=== PATIENT | male | born 1945 | race Caucasian/White ===

== ENCOUNTER 2019-04-14 18:46 | Inpatient (IN) | payer OTHER ==
[~2019-04-14] VITALS: Ht 180.3 cm; Wt 52.2 kg
--- NOTE | ~2019-04-14 | EKG ---
[place], [place] ELECTROCARDIOGRAM REPORT NAME: MARY GRACE LEUNG UNIT #: [id number] ROOM: 412 DOCTOR: MARIOLA DRAFT REPORT BIRTHDATE: [birth year] [facility] Test Date: 2019-04-14 Test Time: 19:28:56 Pat Name: MARY GRACE LEUNG Department: Room: 412 Gender: M Physician Assistant: SS RESP : 1945 Requested By: DANIELLE ALVAREZ Order Number: [id number] Reading MD: Delfino Olivares MD Measurements Intervals [place] Rate: 76 P: 71 ID: 119 QRS: 33 QRSD: 90 T: 55 QT: 352 QTc: 396 Interpretive Statements Sinus rhythm Borderline short ID interval Low voltage, extremity and precordial leads Electronically Signed On 04-18-2019 9:33:22 PDT by Delfino Olivares MD CM:EKGRPT:ELECTROCARDIOGRAM REPORT 0933 DANIELLE SANDOVAL DRAFT REPORT DANIELLE ALVAREZ DO
--- NOTE | ~2019-04-14 | PR ---
[place], [place] PROGRESS NOTE NAME: MARY GRACE LEUNG UNIT #: [id number] ROOM: 412 DOCTOR: PHD TIA POON BIRTHDATE: [birth year] DOS: 04/16/2019 I followed up with the patient today to assess for the need for emergency guardianship. The patient appears less irritable than yesterday. He continues to demonstrate significant confusion. He gave the date as January 2000. He made several nonsensical statements. Mood was irritable. Affect was intense. There is no suicidal or homicidal ideation, plan or intent. He declined his swallowing assessment today and has also been noncompliant with eating and care. I spoke with nursing staff at his [facility] who states that paranoia and noncompliance are baseline behaviors for this patient as well as confusion and limited orientation. In my opinion, the patient is not competent to make informed healthcare decisions. Given his noncompliance to treatment and care, I will file for emergency guardianship. DIAGNOSES: Brief psychotic disorder; major depressive disorder, recurrent, severe; unspecified neurocognitive disorder. PLAN: In my opinion, the patient is not competent to make informed healthcare decisions. I have completed the emergency guardianship paperwork. Sharita Poon, PhD CM:PNESTUARDO [id number] PHD TIA POON 04/16/19 3471 interface
--- NOTE | ~2019-04-14 | CON ---
[place], [place] REPORT OF CONSULTATION NAME: MARY GRACE LEUNG UNIT #: [id number] ROOM: [facility] DOCTOR: PHD ELIN TIA BIRTHDATE: [birth year] DOS: 04/15/2019 HISTORY OF PRESENT ILLNESS: The patient is a 73-year-old male referred by the hospitalist with concerns for confusion. He was a resident at the [facility]. The patient states that he is and has 2 kids. 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 Per his medical record, he has history of alcohol abuse and is a former smoker. He does not use illegal drugs. PAST MEDICAL HISTORY: Coronary artery disease, chronic back pain, dementia, essential hypertension, hyperlipidemia. MEDICATIONS: Heparin, Dulcolax, Zofran, Tylenol, Rocephin, Restoril. NEUROLOGIC EXAMINATION: The patient was lying in bed in no apparent distress. He was awake, alert and oriented to person. He stated that he was in some "hospital." He cannot provide the time, the president or any current events. Mood was irritable. Affect was restricted in range. He denied current thoughts of wanting to harm himself or anyone else. Speech was within normal limits with respect to rhythm, rate, volume and tone. Expressive and receptive language appeared within normal limits conversationally. Thought process was tangential. Thought content was noteworthy for paranoid delusions that the staff were poisoning him. He has declined to eat for fear that his food has been poisoned. He is not attending to hygiene or grooming nor allowing anyone to assist him with these matters and as a consequence, he is malodorous. I discussed the patient with Dr. Myrick. He stated that the patient has been expressing passive wish to , not attending to his ADLs at his prison. DIAGNOSES: Brief psychotic disorder; major depressive disorder, recurrent, severe; unspecified neurocognitive disorder. PLAN: The patient appears to be appropriate for the [facility] where he can receive further psychiatric stabilization. I spoke to [facility] staff and Dr. Myrick who stated that the patient would benefit from treatment on the [facility] once medically stable. Thank you very much for this consult. [place], [place] REPORT OF CONSULTATION NAME: MARY GRACE LEUNG UNIT #: [id number] ROOM: [facility] DOCTOR: ELIN, PHD TIA BIRTHDATE: [birth year] Sharita Poon, PhD CM:CONSTR:REPORT OF CONSULTATION 1711 04/15/19 2336 interface
--- NOTE | ~2019-04-14 | EKG ---
[place], [place] ELECTROCARDIOGRAM REPORT NAME: MARY GRACE LEUNG UNIT #: [id number] ROOM: 412 DOCTOR: MARIOLA DRAFT REPORT BIRTHDATE: [birth year] [facility] Test Date: 2019-04-14 Test Time: 23:18:38 Pat Name: MARY GRACE LEUNG Department: Room: 412 Gender: M Oracle Adf Developer: SS RESP : 1945 Requested By: RAVIN JUNIOR Order Number: [id number] Reading MD: Delfino Olivares MD Measurements Intervals [place] Rate: 76 P: 71 WA: 132 QRS: 32 QRSD: 85 T: 45 QT: 390 QTc: 439 Interpretive Statements Sinus rhythm Low voltage, extremity leads Baseline wander in lead(s) III No previous ECG available for comparison Electronically Signed On 04-18-2019 9:33:59 PDT by Delfino Olivares MD CM:EKGRPT:ELECTROCARDIOGRAM REPORT [id number] 0933 RAVIN SANDOVAL DRAFT REPORT RAVIN JUNIOR DO
[2019-04-14 18:55] VITALS: BP 79/47
[2019-04-14 19:03] VITALS: BP 80/40
[2019-04-14 19:38] LABS: BASO # 0.1 10*3/uL (0.0-0.1); BASO % 0.7 % (0.0-1.0); EOS # 0.3 10*3/uL (0.0-0.4); EOS % 2.2 % (1.0-4.0); HEMATOCRIT 37.4 % (42.0-52.0); LYMPH # 1.4 10*3/uL (1.3-4.4); LYMPH % 12.1 % (27.0-41.0); MEAN CELL VOLUME 101.1 fl (80.0-94.0); MEAN CORPUSCULAR HGB 32.4 pg (27.0-31.0); MEAN CORPUSCULAR HGB CONC 32.1 g/dl (33.0-37.0); MEAN PLATELET VOLUME 10.4 fl (9.6-12.3); MONO % 9.1 % (3.0-9.0); NEUT # 8.6 10*3/uL (2.3-7.9); NEUT % 74.9 % (47.0-73.0); PLATELET COUNT AUTOMATED 407 10*3/uL (130-400); RED CELL DISTRI WIDTH 13.5 % (0-14.5); WHITE BLOOD COUNT 11.4 10*3/uL (4.8-10.8)
[2019-04-14 19:53] LABS: ACT PARTIAL THROMBO TIME 27.1 SECONDS (20.0-32.1); INTERNATIONAL NORM RATIO 1.2 (2.0-3.5)
[2019-04-14 19:56] LABS: ALBUMIN 3.3 gm/dl (3.1-4.5); ALKALINE PHOSPHATASE 121 U/L (45-117); BUN 137 mg/dl (7-24); CHLORIDE 105 mmol/L (98-107); POTASSIUM 5.8 mmol/L (3.5-5.1); SGOT/AST 15 IU/L (3-35); SGPT/ALT 10 U/L (12-78); SODIUM 141 mmol/L (136-145); TOTAL PROTEIN 8.4 gm/dL (6.4-8.2)
[2019-04-14 20:00] LABS: ACETAMINOPHEN (TYLENOL) < 5.0 ug/ml (10-30); ETHYL ALCOHOL < 3.0 mg/dl (<3)
[2019-04-14 20:12] LABS: CREATININE 4.25 mg/dL (0.70-1.30)
[2019-04-14 20:17] LABS: TROPONIN I < 0.015 ng/ml (<0.045)
[2019-04-14 20:53] VITALS: BP 86/50
--- NOTE | 2019-04-14 21:20 | NUR ---
PATIENT REFUSED WOUND CHECK
[2019-04-14 21:40] VITALS: BP 104/69
--- NOTE | 2019-04-14 21:40 | NUR ---
A 73 YEAR OLD MALE admitted to ICCU, under the services of ELENA Waldrop DO with a diagnosis of HYPOTENSION,ARF,HYPER KALEMIA. Chief complaint is FOR PSYCH EVAL. Patient arrived via stretcher from ER. Monitor applied. Initial assessment completed. Vital signs taken and recorded. ELENA WALDROP DO notified of admission to the unit. Orders received. See assessment for past medical history, medications and allergies. Patient and/or family oriented to unit. [facility] ICCU visitation policy reviewed. Clothing/patient valuable form completed. LULU PIRES
[2019-04-14] MEDS ORDERED: FLUVOXAMINE MA100 MG PO ×2 (22:00→22:26)
[2019-04-14] MEDS ORDERED: FLUVOXAMINE50 MG PO ×2 (22:01→22:26)
[2019-04-14] MEDS ORDERED: KETOROLAC30 MG/1 M1 IJ (22:02)
--- NOTE | 2019-04-14 22:19 | NUR ---
DR. COLLIER'S ANSWERING MACHINE NOTIFIED OF CONSULT, AWAITING DR. COLLIER RETURN CALL.
[2019-04-14] MEDS ORDERED: ATORVASTATIN CA40 M1 PO (22:23)
[2019-04-14] MEDS ORDERED: NORVASC5 MG PO (22:23)
[2019-04-14] MEDS ORDERED: CLOPIDOGREL75 MG PO (22:24)
[2019-04-14] MEDS ORDERED: ISOSORBIDE30 MG PO (22:27)
[2019-04-14] MEDS ORDERED: KETOROLAC30 MG/1 ML IM (22:29)
[2019-04-14] MEDS ORDERED: ZESTRIL2.5 MG PO (22:29)
[2019-04-14] MEDS ORDERED: LOPRESSOR25 MG PO (22:30)
[2019-04-14] MEDS ORDERED: COMPLETE SENIO1 EACH PO (22:31)
[2019-04-14] MEDS ORDERED: MIRALAX POWDER17 G1 PO (22:33)
[2019-04-14] MEDS ORDERED: NITROGLYCERIN0.4 MG SL (22:33)
[2019-04-14] MEDS ORDERED: SENNA-LAX8.6 MG PO (22:34)
[2019-04-14] MEDS ORDERED: THIAMINE HCL100 MG PO (22:35)
[2019-04-14] MEDS ORDERED: ZOLOFT25 MG PO (22:35)
[2019-04-14] MEDS ORDERED: TRAMADOL HCL50 MG PO (22:36)
[2019-04-14] MEDS ORDERED: VITAMIN D35000 UNIT PO (22:37)
--- NOTE | 2019-04-14 22:53 | NUR ---
PT. REFUSING BLOOD WORK AT THIS TIME. WILL NOT LET LAB DRAW. WHEN ASKED IF HE WAS HUNGRY, PT. SCREAMED "NO". PT. REMAINS DIFFICULT. DR. COLLIER RETURNED CALL, NO FURTHER ORDERS RECEIVED. JONO LOMELI RN
--- NOTE | 2019-04-14 23:04 | NUR ---
[facility] NOTIFIED OF PSYCH CONSULT. JONO LOMELI RN
[2019-04-15] VITALS: BP 110/80
--- NOTE | 2019-04-15 00:18 | NUR ---
PT. REFUSING TO LET STAFF CHECK FOR WOUNDS, STATES HE HAS NONE BUT WILL NOT LET STAFF CHECK HIM. REFUSING ALL CARE. JONO LOMELI RN
[2019-04-15 00:20] LABS: BILIRUBIN NEGATIVE (NEGATIVE); CLARITY TURBID (CLEAR); COLOR YELLOW (YELLOW); GLUCOSE NEGATIVE (NEGATIVE); KETONE NEGATIVE (NEGATIVE)
[2019-04-15 00:21] LABS: BLOOD 1+ (NEGATIVE); LEUKO ESTERASE 3+ (NEGATIVE); NITRITE POSITIVE (NEGATIVE); PH 7.5 (5.0-9.0); UROBILINOGEN 0.2 E.U./dl (0.2-1.0); WBC TNTC wbc/hpf (0-5)
[2019-04-15 00:29] LABS: URINE AMPHETAMINES < 1000 (1000ng/ml); URINE BARBITURATES < 200 (200ng/ml); URINE BENZODIAZEPINES < 200 (200ng/ml); URINE OPIATES < 300 (300ng/ml)
[2019-04-15 00:34] LABS: URINE CANNABINOIDS (THC) < 50 (50ng/ml); URINE COCAINE < 300 (300ng/ml); URINE METHADONE < 300 (300ng/ml)
[2019-04-15 00:39] LABS: URINE PHENCYCLIDINE < 25 (25ng/ml)
--- NOTE | 2019-04-15 02:07 | NUR ---
PT. ASKED IF HE WAS GETTING SOMETHING TO EAT. I INFORMED PATIENT THAT IT WAS 0200 AND I WOULD BE ABLE TO GET HIM A BOXED LUNCH, WHICH WAS ALL THAT WAS AVAILABLE AT THIS TIME OF MORNING. PATIENT STATED "QUIT FOOLING WITH ME", "I DID BEFORE". WHEN ASKED IF HE WANTED TO SOMETHING TO EAT CURRENTLY, PT. STATED "JOSÉ MIGUEL, I DON'T KNOW, DO I". PATIENT REFUSING EKG AND MORE BLOOD WORK. VERY NONCOMPLIANT AND RUDE TO STAFF. JONO LOMELI RN
[2019-04-15 04:00] VITALS: BP 105/66
--- NOTE | 2019-04-15 07:00 | NUR ---
PT REFUSED AM ASSESMENT. PT AWAKE AND VERY MEAN AND VERBALLY ABUSIVE TO STAFF. IV FLUIDS CONTINUE TO INFUSE PER ORDER.
[2019-04-15 08:00] VITALS: BP 111/74
--- NOTE | 2019-04-15 08:30 | NUR ---
PT CONTINUES TO REFUSE AM LABS.
--- NOTE | 2019-04-15 09:00 | NUR ---
PT REFUSED TO EAT BREAKFAST AND REFUSED TO WORK WITH SPEECH THERAPY.
--- NOTE | 2019-04-15 09:00 | NUR ---
Supervisor Dog License Officer in to see patient. He is a LTC resident at [facility]. When medically stable for discharge he will be discharged to U.
--- NOTE | 2019-04-15 09:10 | NUR ---
PT REFUSED RENAL ULTRASOUND. PT INCONT. OF STOOL BUT HAS REFUSED TO LET ME CLEAN HIM UP. PT REFUSES TO BELIEVE THAT HE HAS MOVED HIS BOWELS EVEN THOUGH WHEN HE USES THE URINAL THERE IS STOOL ON THE OUTSIDE OF THE URINAL.
--- NOTE | 2019-04-15 09:15 | NUR ---
SPEECH PATHOLOGY Orders for dysphagia evaluation received and chart review completed. Assessment was attempted this am. Patient was awake in bed and his breakfast tray was present. Patient was noncompliant at this time and refused to participate or eat. His nurse was also present in the room and patient was noted to be impolite with her as well and refusing other care. Will attempt assessment again later. Thank you for this referral. ELVIRA VICTOR MS CCC-MAINTENANCE ADVISOR
--- NOTE | 2019-04-15 09:45 | NUR ---
PT REQUESTED TYLENOL FOR GENERALIZED ACHES AND PAINS. PT REFUSED SQ HEPARIN. PT AGAIN REFUSED TO LET ME LOOK TO SEE IF HE NEEDS CLEANED UP.
--- NOTE | 2019-04-15 10:19 | NUR ---
DR PHAM IN TO SEE PT. UPDATED HIM ON PT'S CONDITION AND PT'S CONTINUED REFUSALS OF TREATMENTS.
[2019-04-15 12:00] VITALS: BP 123/66
--- NOTE | 2019-04-15 12:09 | NUR ---
DR WORTHINGTON IN TO SEE PT.
--- NOTE | 2019-04-15 13:08 | NUR ---
SPEECH PATHOLOGY Evaluation attempted this pm. Patient agreed to eat lunch and a tray was ordered. Clinician attempted assessment once meal tray arrived. Patient was uncooperative and refused evaluation. Encouragment to eat was provided and assistance was offered. Patient continued to be noncompliant and would not eat. He was noted to be confused and not answering questions appropriately. Due to behavior, assessment was not able to be completed at this time. Patient's nurse was informed and verbalized understanding as he has been uncooperative all day. Will attempt again tomorrow. Thank you for this referral. ELVIRA VICTOR MSCCC-DIRECTOR HUMAN SERVICES
--- NOTE | 2019-04-15 13:26 | NUR ---
Occupational Therapy evaluation offered but patient declined stating that he did not feel good. Nursing reports that patient refuses to eat unless the food is prepackaged d/t his paranoia. OTR will recheck at a later date. Jayleen Hdez OTR/L
--- NOTE | 2019-04-15 13:32 | NUR ---
PHYSICAL THERAPY PAtient refuses PT this date. Will attempt at a later date. Thank you for this referral. Archana Plata,PT
--- NOTE | 2019-04-15 14:36 | NUR ---
DR COLLIER IN TO SEE PT EARLIER. PT AGREED TO HAVE LABS DRAWN FOR DR COLLIER. LABS FROM AM REORDERED.
--- NOTE | 2019-04-15 15:16 | NUR ---
PT ON BEDPAN FOR BM. PT CLEANSED AND LINENS CHANGED. PT CONTINUES TO BE VERBALLY ABUSIVE TO STAFF.
[2019-04-15 16:00] VITALS: BP 103/50
[2019-04-15 16:04] LABS: BASO # 0.1 10*3/uL (0.0-0.1); BASO % 0.5 % (0.0-1.0); EOS # 0.2 10*3/uL (0.0-0.4); EOS % 2.4 % (1.0-4.0); HEMATOCRIT 35.8 % (42.0-52.0); HEMOGLOBIN 11.2 g/dl (14.0-18.0); LYMPH # 0.9 10*3/uL (1.3-4.4); LYMPH % 9.9 % (27.0-41.0); MEAN CELL VOLUME 102.9 fl (80.0-94.0); MEAN CORPUSCULAR HGB 32.2 pg (27.0-31.0); MEAN CORPUSCULAR HGB CONC 31.3 g/dl (33.0-37.0); MEAN PLATELET VOLUME 9.8 fl (9.6-12.3); MONO # 0.9 10*3/uL (0.1-1.0); MONO % 9.5 % (3.0-9.0); NEUT % 76.8 % (47.0-73.0); PLATELET COUNT AUTOMATED 318 10*3/uL (130-400); RED BLOOD COUNT 3.48 10*6/uL (4.50-5.90); RED CELL DISTRI WIDTH 13.6 % (0-14.5); WHITE BLOOD COUNT 9.1 10*3/uL (4.8-10.8)
[2019-04-15 16:15] LABS: CREATININE 2.34 mg/dL (0.70-1.30); POTASSIUM 5.2 mmol/L (3.5-5.1)
[2019-04-15 16:20] LABS: FREE T4 1.08 ng/dl (0.76-1.46); PHOSPHOROUS 3.3 mg/dL (2.5-4.9)
[2019-04-15 16:26] LABS: THYROID STIM HORMONE (HS) 0.576 uIU/ml (0.358-4.75)
--- NOTE | 2019-04-15 16:44 | NUR ---
DR LEO STATED PT COULD BE DISCHARGED TO U WHEN MEDICALLY STABLE.
--- NOTE | 2019-04-15 17:23 | NUR ---
DR COLLIER UPDATED ON LAB RESULTS. NEW ORDERS RECEIVED.
[2019-04-15 20:00] VITALS: BP 144/84
--- NOTE | 2019-04-15 20:23 | NUR ---
DR. JUNIOR NOTIFIED OF PATIENT DEMANDING HOME MEDICATIONS INCLUDING BLOOD PRESSURE MEDICATION. DR. JUNIOR TO REVIEW. JONO LOMELI RN
--- NOTE | 2019-04-15 20:52 | NUR ---
PT. HAS IVF INFUSING VIA RAN, SITE ASYMPT. LUNGS CLEAR BUT DIMINISHED BILAT, PULSE OX 99% ON RA. ABDOMEN SOFT, NONDISTENDED AND NORMO. NO PERIPHERAL EDEMA NOTED. TYLENOL GIVEN AT 8 FOR COMPLAINTS OF HEADACHE ORDERED. PT. REMAINS UNCOOPERATIVE WITH CARE AND SARCASTIC WITH ANSWERS. CONTINUES TO BELITTLE STAFF. JONO LMOELI RN
--- NOTE | 2019-04-15 21:57 | NUR ---
AFTER EMPTYING PATIENTS URINAL, EMPTY URINAL WAS PLACED ON NIGHT STAND WITH LID ON AND FELL OVER. PT. CALLED NURSE "YOU DUMB XXXX". NURSE INFORMED PATIENT THAT IT WAS AN ACCIDENT AND DIDN'T APPRECIATE BEING CALLED DUMB. JONO LOMELI RN
--- NOTE | 2019-04-15 22:11 | NUR ---
PT. STATES EFFECTIVENESS OF TYLENOL. JONO LOMELI RN
--- NOTE | 2019-04-15 22:11 | NUR ---
DR. JUNIOR NOTIFIED THAT PATIENT DEMANDING TO TALK TO HIM REGARDING HOME MEDICATIONS. JONO LOMELI RN
[2019-04-16] VITALS: BP 113/70
--- NOTE | 2019-04-16 02:14 | NUR ---
PT. COMPLAINS OF HEADACHE, TYLENOL GIVEN ORDERED PER PT. REQUEST. PT ALSO STATED C/O OF NAUSEA, ZOFRAN GIVEN ORDERED, PT. THEN COMPLAINED THAT MEDICINE GIVES HIM THE "SHITS" AND I SHOULD'NT HAVE GIVEN HIM THE ZOFRAN. EVEN THOUGH PT. WAS AWARE ZOFRAN WAS BEING GIVEN PRIOR TO GIVING IT. JONO LOMELI RN
--- NOTE | 2019-04-16 02:41 | NUR ---
CLARIFICATION OF IVF WITH DR. JUNIOR. ONCE 0.45NS IS DONE, D/C IVF.
[2019-04-16 04:00] VITALS: BP 106/67
--- NOTE | 2019-04-16 04:48 | NUR ---
PT. CONTINUES TO REFUSE WOUND CHECK.
[2019-04-16 08:00] VITALS: BP 128/80
[2019-04-16 08:20] LABS: ALBUMIN 2.8 gm/dl (3.1-4.5); CREATININE 1.72 mg/dL (0.70-1.30); POTASSIUM 4.9 mmol/L (3.5-5.1); TOTAL PROTEIN 6.9 gm/dL (6.4-8.2)
--- NOTE | 2019-04-16 08:52 | NUR ---
MEDICATED PT PER PRN ORDER WITH TYLENOL FOR C/O GENERALIZED ACHES AND PAINS.
--- NOTE | 2019-04-16 09:00 | NUR ---
Yoga Instructor in to see patient. He is a LTC resident at [facility]. When medically stable for discharge he will be discharged to U.
--- NOTE | 2019-04-16 09:50 | NUR ---
PT STATES SOME RELIEF OF PAIN WITH EARLIER TYLENOL.
--- NOTE | 2019-04-16 10:25 | NUR ---
DR LINTON IN TO SEE PT.
[2019-04-16 12:00] VITALS: BP 143/91
--- NOTE | 2019-04-16 12:29 | NUR ---
DR COLLIER IN TO SEE PT.
--- NOTE | 2019-04-16 13:11 | NUR ---
SPEECH PATHOLOGY Swallowing assessment was attempted this date. Patient was awake and sitting upright in bed. He had a meal tray present but it was noted to be untouched. Clinician explained reasoning for her visit with need to assess swallowing skills. Patient was impolite and sarcastic with clinician and refused to eat or drink anything. He stated that he was swallowing fine. Results were shared with his nurse, who reported that he continues to be noncompliant with eating and care. Will attempt assessment again tomorrow as able. ELVIRA VICTOR MSCCC-APPAREL CUTTER
--- NOTE | 2019-04-16 14:55 | NUR ---
Patient refuses any out of bed activity and refuses Occupational Therapy evaluation. Jayleen Hdez OTR/L
--- NOTE | 2019-04-16 15:21 | NUR ---
PHYSICAL THERAPY PAtient continues to refuse PT services. Archana Plata,PT
--- NOTE | 2019-04-16 15:47 | NUR ---
Reached out to Kaela Mcadams regarding emergency guardianship papers. Kaela will follow up in the morning.
[2019-04-16 16:00] VITALS: BP 123/68
--- NOTE | 2019-04-16 16:00 | NUR ---
Reached out to Kaela Mcadams regarding emergency guardianship paperwork. Faxed state of expert evaluation and supplement for emergency guardian of person to Sandra Hassan at [employer] [phone] along with clinical.
--- NOTE | 2019-04-16 16:06 | NUR ---
Fax didn't go through for Vero Hassan, faxing to [phone]. Fax successful.
--- NOTE | 2019-04-16 17:22 | NUR ---
TYLENOL GIVEN FOR C/O GENERALIZED DISCOMFORT. WILL MONITOR.
--- NOTE | 2019-04-16 18:25 | NUR ---
TYLENOL EFFECTIVE PER PT.
[2019-04-16 20:00] VITALS: BP 129/70
--- NOTE | 2019-04-16 20:40 | NUR ---
24 HOUR CHART CHECK COMPLETE.
--- NOTE | 2019-04-16 22:06 | NUR ---
PRN TYLENOL ADMINISTERED FOR 6/10 HEADACHE. WILL CONTINUE TO MONITOR AND REASSESS IN AN HOUR.
[2019-04-17] VITALS: BP 121/80
--- NOTE | 2019-04-17 07:35 | NUR ---
Received call from Vero Hassan at [facility] regarding emergency guardianship paperwork. Since the patient's address is [place], [place], [employer] in [facility] would need to be used. Phone numbers for [facility] contact are [phone] or [phone].
[2019-04-17 07:37] LABS: ALBUMIN 2.6 gm/dl (3.1-4.5); ALKALINE PHOSPHATASE 104 U/L (45-117); CHLORIDE 111 mmol/L (98-107); CREATININE 1.22 mg/dL (0.70-1.30); POTASSIUM 4.6 mmol/L (3.5-5.1); SGOT/AST 19 IU/L (3-35); SGPT/ALT 11 U/L (12-78); SODIUM 140 mmol/L (136-145); TOTAL PROTEIN 6.6 gm/dL (6.4-8.2)
--- NOTE | 2019-04-17 07:42 | NUR ---
Voicemail left for [facility] at [phone]. Awaiting return call.
[2019-04-17 07:44] LABS: BUN 42 mg/dl (7-24)
--- NOTE | 2019-04-17 07:48 | NUR ---
Spoke to Hawa at [facility] regarding POA or guardianship papers on file. She states there are no POA or guardianship paperwork on file. She states there is a brother, Chalino, who is the billing contact and they are allowed to give information too. Contacted Kaela Mcadams. Awaiting return call.
[2019-04-17 08:00] VITALS: BP 145/89
[2019-04-17] MEDS ORDERED: LEVAQUIN750 M1 PO (10:44)
--- NOTE | 2019-04-17 10:45 | NUR ---
[facility] emergency [facility]hip paperwork and how to file. If the brother chooses to be the guardian he will need to [facility] and cook pickled meat the adult guardianship application or print it from [email or web address]. He will need the expert guardianship paperwork that has been completed by Dr. Poon and $161 to file. Will reach out to the brother.
--- NOTE | 2019-04-17 11:00 | NUR ---
Spoke to brother, Chalino, at [phone] regarding emergency guardianship. He states the patient has a daughter which he will either try to get a hold of or call CM back at a later time to give CM her phone number to call her. He states if she is unable to do the emergency guardianship he would be willing to. Awaiting response.
--- NOTE | 2019-04-17 11:10 | NUR ---
Spoke to Yesenia, , at [facility] regarding emergency guardianship. She states the hospital will be his authorized patient registration representative and the family can pursue guardianship paperwork. Fax expert evaluation to [phone]. Faxed and confirmation received.
[2019-04-17 12:00] VITALS: BP 140/84
--- NOTE | 2019-04-17 12:38 | NUR ---
SPEECH PATHOLOGY Attempted swallowing evaluation X3 this date. Patient refused upon all trials, and would not consume any food or liquid. Patient was pleasant this date, but confused. Encouragment was provided as well as positive reinforcement. Meal tray was present and untouched. Patient stated that he was aware the food was there but was not ready to eat. Clinician attempted to hand him liquids, but he would put the cup down. Assessment has been attempted over the past three days without any success. Encouragement is not helpful and only results in patient becoming angry. As he is not able to cooperate or participate, will discontinue attempts at this time. Reports indicate that patient will be transferred to behavioral health unit. If patient becomes more compliant with care and meals, this dept. will be available for reconsult as needed. Thank you for this referral. ELVIRA REID[facility]FF[facility]NUT ROASTER
--- NOTE | 2019-04-17 14:06 | NUR ---
Discharge instructions reviewed with patient/family. Patient receptive and verbalizes understanding. Follow-up care arranged. Written instructions given to patient/family. RAJIV HOOPER.
== END 2019-04-17 14:06 | disposition home health service (06) | DRG 314 ==
LOC: ED 18:46 → EDHOLD 20:45 → ICCU 20:45 → 4E 20:45 → ICCU 21:11 → 4E 04-16 12:36
PROVIDERS: Internal Medicine; Internal Medicine Nephrology; Student in an Organized Health Care Education/Training Program; ADMIT Internal Medicine
DX: I95.89 Other hypotension (principal); N17.0 Acute kidney failure with tubular necrosis; G93.41 Metabolic encephalopathy; F03.91 Unspecified dementia, unspecified severity, with behavioral disturbance; F33.2 Major depressive disorder, recurrent severe without psychotic features; F23 Brief psychotic disorder; N39.0 Urinary tract infection, site not specified; E87.2 Acidosis; E86.1 Hypovolemia; E87.5 Hyperkalemia; I25.10 Atherosclerotic heart disease of native coronary artery without angina pectoris; M54.9 Dorsalgia, unspecified; G89.29 Other chronic pain; I10 Essential (primary) hypertension; E78.5 Hyperlipidemia, unspecified; R79.89 Other specified abnormal findings of blood chemistry; D72.829 Elevated white blood cell count, unspecified; D53.9 Nutritional anemia, unspecified; D47.3 Essential (hemorrhagic) thrombocythemia; R41.9 Unspecified symptoms and signs involving cognitive functions and awareness; B96.89 Other specified bacterial agents as the cause of diseases classified elsewhere; E87.8 Other disorders of electrolyte and fluid balance, not elsewhere classified; T39.395A Adverse effect of other nonsteroidal anti-inflammatory drugs [NSAID], initial encounter; T46.4X5A Adverse effect of angiotensin-converting-enzyme inhibitors, initial encounter; Z79.899 Other long term (current) drug therapy; Z87.891 Personal history of nicotine dependence; Z91.11 Patient's noncompliance with dietary regimen; Z91.19 Patient's noncompliance with other medical treatment and regimen; Y92.89 Other specified places as the place of occurrence of the external cause

== ENCOUNTER 2019-04-17 12:37 | Inpatient (IN) | payer OTHER ==
[~2019-04-17] VITALS: Ht 180.3 cm; Wt 66.7 kg
--- NOTE | ~2019-04-17 | EKG ---
[place], [place] ELECTROCARDIOGRAM REPORT NAME: MARY GRACE LEUNG UNIT #: [id number] ROOM: 312 DOCTOR: MARIOLA DRAFT REPORT BIRTHDATE: [birth year] [facility] Test Date: 2019-04-22 Test Time: 16:05:18 Pat Name: MARY GRACE LEUNG Department: Room: 312 2 Gender: M Ceramic Sprayer: : 1945 Requested By: DMITRIY PABON Order Number: [id number] Reading MD: El Moses Measurements Intervals [place] Rate: 87 P: [place]: QRS: 20 QRSD: 82 T: -4 QT: 366 QTc: 441 Interpretive Statements Atrial rhythm Low voltage, extremity leads Compared to ECG 04/14/2019 23:18:38 Electronically Signed On 04-23-2019 13:45:24 PDT by El Moses CM:EKGRPT:ELECTROCARDIOGRAM REPORT 1605 1345 DMITRIY PABON EPIPHANY DRAFT REPORT DMITRIY PABON
--- NOTE | ~2019-04-17 | EKG ---
[place], [place] ELECTROCARDIOGRAM REPORT NAME: MARY GRACE LEUNG UNIT #: [id number] ROOM: 312 DOCTOR: MARIOLA DRAFT REPORT BIRTHDATE: [birth year] [facility] Test Date: 2019-04-22 Test Time: 18:58:06 Pat Name: MARY GRACE LEUNG Department: Room: 312 2 Gender: M Plate Sensitizer: : 1945 Requested By: DMITRIY PABON Order Number: [id number] Reading MD: El Moses Measurements Intervals [place] Rate: 96 P: 73 ME: 120 QRS: 28 QRSD: 78 T: 49 QT: 334 QTc: 422 Interpretive Statements Sinus rhythm Atrial premature complex Low voltage, extremity and precordial leads Baseline wander in lead(s) V4 Compared to ECG 04/14/2019 23:18:38 Atrial premature complex(es) now present Electronically Signed On 04-23-2019 13:46:50 PDT by El Moses CM:EKGRPT:ELECTROCARDIOGRAM REPORT [id number] 1346 DMITRIY PABON EPIPHANY DRAFT REPORT DMITRIY PABON
--- NOTE | ~2019-04-17 | PR ---
[place], [place] PROGRESS NOTE NAME: MARY GRACE LEUNG UNIT #: [id number] ROOM: 312 DOCTOR: PIERCE PHAM MD BIRTHDATE: [birth year] DOS: 04/21/2019 CHIEF COMPLAINT: "I can't find my TV remote, what did you guys do to it." SUMMARY OF THE VISIT: The patient was interviewed as he was resting in his bed. Nurses report he continues to be confused and have a very poor appetite, although he was just started on the Marinol yesterday. During my exam, he was somewhat sarcastic and nihilistic, still reporting depression. MENTAL STATUS: He is alert and oriented, but he does have significant time gaps and I am not clear he knows that he is in the hospital. Mood does seem to be overwhelmingly down and depressed. Affect is flat, blunted and constricted. There is no franki or hypomania. No gross psychosis. Short term memory is poor. PLAN: At this point in time, his lack of appetite is more problematic than any OCD that is present, although he had been on Remeron before he was not on it in conjunction with Risperdal and the Marinol. I will discontinue the Luvox in lieu of Remeron 15 mg at bedtime. We will engage in individual and reyes milieu activity, returning to the least restrictive environment when psychiatrically stable. PIERCE PHAM MD CM:PNTRANS [id number] PIERCE PHAM MD 04/21/19 1015 interface
--- NOTE | ~2019-04-17 | PR ---
[place], [place] PROGRESS NOTE NAME: MARY GRACE LEUNG UNIT #: [id number] ROOM: 312 DOCTOR: PIERCE PHAM MD BIRTHDATE: [birth year] DOS: 04/23/2019 CHIEF COMPLAINT: "Oh, I can't eat everything that they give to me plus I don't know what's going to happen here, did you see how many people are around here, something bad is gonna happen." SUMMARY OF THE VISIT: The patient was interviewed as he was resting quietly in bed. He has continued to isolate himself in his room and requires a great deal of prompting to attend to ADLs or to leave his room to attend to group or to go and have some type of meal. The patient reports that he cannot eat the large portions set in front of him because eating large amounts of food at once will cause him to be nauseated and throw up. He otherwise engaged in relatively good conversation. However, there is a bit of paranoia or confusion on his part. He did allude to being somewhat concerned about his safety because of the number of people that are here and being fearful that something will happen to him. On a positive note, the patient did sign in and is willing to start working on improving his overall sense of well-being. He has been more compliant with medications. MENTAL STATUS: He is alert and oriented with time gaps. He was not able to tell me how long he has been here, but did attempt to confabulate a little bit. The patient continues to exhibit the neurovegetative symptoms of poor appetite and lack of ADL maintenance. There was no hypomania or franki. There is the possible presence of some paranoia and I will monitor this and memory does have gaps. PLAN: I will renew his p.r.n. Ativan should he require intervention. I will increase the Namenda from 10 mg total in a day to 15 mg a day, augmenting the effectiveness of the Exelon patch. At this point, I will maintain his Marinol and Remeron doses as they had been. We will go ahead and consult Dietary to see if we can offer him 6 small meals a day to see if this improves his overall p.o. intake. We will monitor and support, engage in individual and reyes milieu activity, returning to the least restrictive environment when psychiatrically stable. [place], [place] PROGRESS NOTE NAME: MARY GRACE LEUNG UNIT #: [id number] ROOM: 312 DOCTOR: PIERCE PHAM MD BIRTHDATE: [birth year] PIERCE PHAM MD CM:PNTRANS [phone] PIERCE PHAM MD 04/23/191953 interface
--- NOTE | ~2019-04-17 | EKG ---
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
--- NOTE | ~2019-04-17 | PR ---
[place], [place] PROGRESS NOTE NAME: MARY GRACE LEUNG UNIT #: [id number] ROOM: 312 DOCTOR: PIERCE PHAM MD BIRTHDATE: [birth year] DOS: 04/19/2019 CHIEF COMPLAINT: "Why don't I have a television and where is my phone. I paid for these things I need to have them." SUMMARY OF THE VISIT: The patient was interviewed in his room as he was lying in bed. He continues to be negativistic and very depressed and sarcastic. He outwardly is tolerating the medicines well and I see no sedation, somnolence, extrapyramidal symptoms or tardive dyskinesia. He remains confused though especially regarding time frames. Nurses report he had a very poor sleep last night as well. MENTAL STATUS: He is alert and oriented to person, possibly place, although it is unclear, at times I do believe he believes he is at a hotel. He is not oriented to time. Mood seems overwhelmingly depressed and irritable. I see no psychotic symptoms present, but there is mood debility and some irrational thoughts. Short term memory is very poor. PLAN: I will increase the Exelon patch from 4.6 mg a day to 9.5 mg a day, attempting to improve and maintain ADLs, behavior and cognition. I will change his Risperdal M-Tab from 1 mg twice daily to 2 mg at night, hoping to increase sedation at nighttime and lessening it during the day. We will engage in individual and reyes milieu activity, returning to the least restrictive environment when psychiatrically stable. PIERCE PHAM MD CM:PNTRANS PIERCE PHAM MD 04/19/1925 interface
--- NOTE | ~2019-04-17 | PR ---
[place], [place] PROGRESS NOTE NAME: MARY GRACE LEUNG UNIT #: [id number] ROOM: 312 DOCTOR: PIERCE PHAM MD BIRTHDATE: [birth year] DOS: 04/20/2019 INTERVAL NOTE CHIEF COMPLAINT: "I really don't want to be bothered. I'm not hungry." SUMMARY OF THE VISIT: The patient was interviewed as he was resting quietly in bed. He did refuse food this morning. Nurses report that he is eating anywhere from 0 to an occasional time when he would eat 50%. Most of the time, it is around 20% of what he is offered. He remains still very negativistic and depressed. MENTAL STATUS: He is alert and oriented with time gaps. Mood does seem to be overwhelmingly depressed. Affect is flat, blunted and constricted. He remains nihilistic and very negative. There is no overt agitation. There is no franki or hypomania. Short-term memory has gaps. PLAN: I will continue to push the Namenda, bringing it into the therapeutic range to augment the effectiveness of the Exelon patch. Given the severity of his poor oral intake and calories, I will add Marinol 2.5 mg b.i.d. a.c., to see if this will stimulate his appetite. We will monitor and support, engage in individual and reyes milieu activity, returning to the least restrictive environment when psychiatrically stable. PIERCE PHAM MD CM:PNTRANS [id number] PIERCE PHAM MD 04/20/19 1012 interface
--- NOTE | ~2019-04-17 | PR ---
[place], [place] PROGRESS NOTE NAME: MARY GRACE LEUNG UNIT #: [id number] ROOM: 312 DOCTOR: PIERCE PHAM MD BIRTHDATE: [birth year] DOS: 04/29/2019 INTERVAL NOTE CHIEF COMPLAINT: "Yeah, I will take a cup of coffee." SUMMARY OF THE VISIT: The patient was interviewed as he was reclining in a Cheryl chair in the quiet room. He was awake upon approach and engaged readily in conversation. For the most part, he was pleasant with me. When I did ask if he would like something to drink or some coffee, he nodded in approval. He also said he would be willing to have somebody will him to the dining area to begin breakfast. Overall with me, his behavior has improved and he has been much more engaging, although nurses report sometimes he can be demanding and irritated. He also is very forgetful and will frequently ask for Tylenol, received the Tylenol and 5 minutes later re-approached staff requesting Tylenol again. MENTAL STATUS: He is alert and oriented to person, place, but not necessarily time. Mood does seem to be more euthymic and he is much more cooperative and pleasant. There is no symptom suggestive of franki or hypomania and there are no gross psychotic symptoms. Short-term memory continues to be very problematic. PLAN: I will continue his current psychotropic regimen. Maintain his Marinol at 5 mg twice daily. I have discussed the case with pharmacy regarding the possibility of implementing placebo in a fashion to prevent him from overdosing on Tylenol or engaging in arguments that are senseless and only served to work the patient up. We will discuss this further to see if this is an ethical intervention that would produce a situation where the patient's best interests are met. We will continue to support and monitor. Continue to engage in individual and reyes milieu activity, returning to the least restrictive environment when psychiatrically stable. PIERCE PHAM MD CM:PNTRANS [id number] PIERCE PHAM MD 04/29/19 1426 interface
--- NOTE | ~2019-04-17 | PR ---
[place], [place] PROGRESS NOTE NAME: MARY GRACE LEUNG UNIT #: [id number] ROOM: 312 DOCTOR: PIERCE PHAM MD BIRTHDATE: [birth year] DOS: 04/22/2019 INTERVAL NOTE CHIEF COMPLAINT: "I don't want any." SUMMARY OF THE VISIT: The patient was interviewed as he was resting in bed. I asked him if he would like to have breakfast brought to him or milk shake. He dismissed me with stating he did not want anything and wanted to be left alone. This has been consistent throughout his stay here. He has been very much depressed, nihilistic and avoidant of all contact. Despite the addition of Marinol and Remeron, his appetite remains relatively poor. MENTAL STATUS: He is alert and oriented, but with time gaps. Mood does seem to be still very depressed and he is very nihilistic in his thinking. There is no franki or hypomania. There is still the presence of some guardedness and suspiciousness and short-term memory remains very problematic. PLAN: I will maintain his current psychotropic regimen, consider adjusting both the Namenda and the Exelon at a later date as well as possibly pushing the Marinol higher to improve his appetite. We will engage in individual and reyes milieu activity, returning to the least restrictive environment when psychiatrically stable. PIERCE PHAM MD CM:PNTRANS [id number] PIERCE PHAM MD 04/22/19 1538 interface
--- NOTE | ~2019-04-17 | PR ---
[place], [place] PROGRESS NOTE NAME: MARY GRACE LEUNG UNIT #: [id number] ROOM: 312 DOCTOR: PIERCE PHAM MD BIRTHDATE: [birth year] DOS: 05/01/2019 INTERVAL NOTE CHIEF COMPLAINT: "Oh, there you are." SUMMARY OF THE VISIT: The patient was interviewed as he was beginning to eat his breakfast, he had just started. As I approached, he smiled readily. When I told him that he might be leaving to go back to [place], he teased me stating that that was good news and that he was hoping I was not joking with him. Overall, his demeanor has been much more pleasant and much more engaging and there has been no verbal or physical aggression or agitation noted. Also, he does seem to be tolerating the current medication regimen well without sedation, somnolence, extrapyramidal symptoms or tardive dyskinesia. MENTAL STATUS: He remains alert and oriented to person, place, not time. Mood does seem to be more euthymic. Affect is much more appropriate. There is no symptom suggestive of franki or hypomania. There are no gross psychotic symptoms. Short-term memory continues to be problematic. PLAN: I will go ahead and renew his p.r.n. Ativan should he require intervention. I will add low-dose Rozerem to see if this further aids his sleep as he has been very consistent in stating that he has not slept well. We will see if this changes his responses to me. We will plan to discharge when psychiatrically stable. PIERCE PHAM MD CM:PNTRANS [phone] PIERCE PHAM MD 05/01/19 1836 interface
--- NOTE | ~2019-04-17 | WRIGHTHP ---
[place], [place] PATIENT HISTORY AND PHYSICAL EXAM NAME: [id number] UNIT #: [id number] ROOM: 312 DOCTOR: PIERCE PHAM MD BIRTHDATE: [birth year] DOS: 04/18/2019 INITIAL PSYCHIATRIC EVALUATION CHIEF COMPLAINT: "I guess that is what they need to do, I don't know." HISTORY OF PRESENT ILLNESS: This is a 73-year-old white male known to me from his stay at [facility]. The patient was to be admitted to the [facility] several days ago, but in going through the Emergency Room for medical clearance, he was noted to be hypotensive and in acute renal failure. He subsequently was admitted to the medical floor and then when stable, sent here well at [place]. The patient has had a significant mental health decline. He has been increasingly confused and disoriented. He has a significant history of hoarding and living in deplorable conditions. While at [place], he would not allow them to bathe himself. He would urinate and defecate in his bed and then sit in all day long, again refusing treatment. He was episodically noncompliant with medicines and also with his oral intake, oftentimes he is not eating or drinking for significant periods of time. The patient is admitted now to rule out organic factors and attempt to stabilize on medication, returning to the least restrictive environment when psychiatrically stable. PAST MEDICAL HISTORY: Remarkable for coronary artery disease, chronic pain, dementia, hypertension, hyperlipidemia and macrocytic anemia. MENTAL STATUS: The patient is a former alcohol abuser, but does not currently drink. He does not use illicit drugs. He is also a former cigarette smoker. MENTAL STATUS: He is alert and oriented to self only. He was not certain where he was nor how long he has been here. His responses were short and simple and at times totally inappropriate to the questions asked of him. He would ramble at times nonsensically. He was pleasant, however, upon approach and there was no agitation. Short term memory is very problematic. PLAN: I will go ahead and increase his Luvox from 50 mg in the morning and 100 at night to 50 mg twice daily and 150 mg at night to impact positively on his mood and his OCD. I have started him on Risperdal M-Tab to decrease some of his mood lability and also on Exelon patch and Namenda to impact positively on his cognitive status. We will engage him in individual and reyes milieu activities, returning then to the least restrictive environment when psychiatrically stable. [place], [place] PATIENT HISTORY AND PHYSICAL EXAM NAME: MARY GRACE LEUNG UNIT #: [id number] ROOM: [facility] DOCTOR: PIERCE PHAM MD BIRTHDATE: [birth year] PIERCE PHAM MD CM:HISPHYS:PATIENT HISTORY AND PHYSICAL EXAMINATION [phone] PIERCE PHAM MD 04/18/19 0925 interface
--- NOTE | ~2019-04-17 | PR ---
[place], [place] PROGRESS NOTE NAME: MARY GRACE LEUNG UNIT #: [id number] ROOM: 312 DOCTOR: PIERCE PHAM MD BIRTHDATE: [birth year] DOS: 04/24/2019 INTERVAL NOTE CHIEF COMPLAINT: "That is where I am gone, I am going to get breakfast now, thank you Sir." SUMMARY OF THE VISIT: The patient was interviewed as he was wheeling down the hallway. He stopped to engage in pleasant conversation with me reporting that he was going to the dining area to have breakfast. I offered to push him and he thanked me. He was pleasant and cooperative with me and voiced no other complaints. I did reiterate that one of our nurses had brought in here detangler to comb his hair and he again thanked me for her doing that and overall seemed to be much more pleasant and cooperative than he had been upon admission. Outwardly, he is tolerating the current medication regimen well and I see no sedation or somnolence. MENTAL STATUS: He is alert and oriented with time gaps. Mood does seem to be strongly trending towards euthymia. Affect is much more appropriate. There is no franki or hypomania. There are no gross psychotic symptoms noted. PLAN: I will go ahead and maximize out his Exelon patch, bringing the dose from 9.5 to 13.3 mg a day. I will renew his Ativan p.r.n., should he require intervention. I am still not convinced that his p.o. intake has improved despite utilizing both the Remeron and the Marinol. I will put him on a 48-hour calorie count to better assess his intake. We will support and monitor, engage in individual and reyes milieu activity, returning to the least restrictive environment when psychiatrically stable. PIERCE PHAM MD CM:PNTRANS 7 14 PIERCE PHAM MD 04/24/192316 interface
--- NOTE | ~2019-04-17 | PR ---
[place], [place] PROGRESS NOTE NAME: MARY GRACE LEUNG UNIT #: [id number] ROOM: 312 DOCTOR: PIERCE PHAM MD BIRTHDATE: [birth year] DOS: 04/25/2019 INTERVAL NOTE CHIEF COMPLAINT: "No, they did not give me any chocolate, pudding or milk shakes." SUMMARY OF THE VISIT: The patient was interviewed as he was waiting for lunch. He had his hair nicely combed and neatly combed and pulled back. The nurses had taken a great deal of time to ____. He was bright and pleasant with me and exchanged pleasant greetings. He was not agitated. He remains grossly confused and the confusion is hidden by the fact that he fabulates. He reported to me that he did not get any chocolate, pudding or milk shakes and on the contrary, nurses report he did. He does require a great deal of support and redirection to come out of his room, but he has been doing so more readily of late. He also has been eating much better. MENTAL STATUS: He is alert and oriented with time gaps. Mood does seem to be more euthymic. Affect is more appropriate. There is no franki or hypomania noted. There are no gross psychotic symptoms. Short term memory continues to be problematic. PLAN: I will go ahead and max out the dose of Namenda, bringing it to 10 mg b.i.d. Maintain his current psychotropics including the Marinol to improve appetite. Continue to engage in individual and reyes milieu activity, returning to the least restrictive environment when psychiatrically stable. PIERCE PHAM MD CM:PNTRANS [id number] PIERCE PHAM MD 04/26/19 0242 interface
--- NOTE | ~2019-04-17 | PR ---
[place], [place] PROGRESS NOTE NAME: MARY GRACE LEUNG UNIT #: [id number] ROOM: 312 DOCTOR: PIERCE PHAM MD BIRTHDATE: [birth year] DOS: 04/30/2019 INTERVAL NOTE CHIEF COMPLAINT: "Hey sir, can you make certain, they give me my pain medicine." SUMMARY OF THE VISIT: The patient was interviewed as he was sitting down to eat breakfast. He was spontaneous and that he reached out for me and shook my hand and asked if I could help to get him his pain medicines. He had very little of his breakfast eaten, although he had consumed his shock with Ensure. Nurses report that he tends to graze more frequently during the day, then sit and eat a full meal. I will have them check his way to see if his appetite has truly improved and if we are making progress in his overall weight. Outwardly, he is tolerating the current medication regimen well without sedation or somnolence. MENTAL STATUS: He is alert and oriented to person, possibly place, not to time. Mood seems more euthymic and he is much more spontaneous and engaging. He is actually seeking out conversation. He has not been short or terse with me. There has not been any presence of hypomania or franki and I have not seen the presence of any psychotic symptomatology. Short-term memory continues to be problematic. PLAN: I will maintain his current psychotropic regimen, continue to engage in individual and reyes milieu activity, returning then to [facility] in [place], [place] when psychiatrically stable. PIERCE PHAM MD CM:PNTRANS [id number] PIERCE PHAM MD 04/30/19 1310 interface
--- NOTE | ~2019-04-17 | PR ---
[place], [place] PROGRESS NOTE NAME: MARY GRACE LEUNG UNIT #: [id number] ROOM: 312 DOCTOR: PIERCE PHAM MD BIRTHDATE: [birth year] DOS: 04/28/2019 INTERVAL NOTE: CHIEF COMPLAINT: "Oh, this breakfast looks pretty good." SUMMARY OF THE VISIT: The patient was interviewed as he was sitting, getting ready to eat breakfast. He had already buttered his toast and was ready to start eating. He did report to me that he is not getting any chocolate milk shakes or pudding, which is not true. The patient's short term memory is definitely very suspect. He is brighter though and more pleasant and is definitely more talkative and spontaneous. His appetite still remains somewhat problematic. MENTAL STATUS: He is alert and oriented to person, place, not time. Mood does seem to be trending towards euthymia and he does seem to be slightly brighter and coming out of his depression. There are still significant appetite issues and at times, his energy and focus is less. There is no franki or hypomania. He is somewhat guarded at times. Short term memory has gaps. PLAN: I will discontinue his Wellbutrin as this could potentially curb appetite again and I will increase Marinol from 2.5 mg twice a day to 5 mg twice a day in an effort to fully stimulate his appetite. We will engage him in individual and reyes milieu activity, returning to the least restrictive environment when psychiatrically stable. PIERCE PHAM MD CM:PNTRANS 1 PIERCE PHAM MD 04/28/19 0924 interface
--- NOTE | ~2019-04-17 | DS ---
[place], [place] DISCHARGE SUMMARY [id number] UN[facility] #: [id number] ROOM: 312 DOCTOR: PIERCE PHAM MD BIRTHDATE: [birth year] DOS: 05/02/2019 DISCHARGE SUMMARY: CHIEF COMPLAINT: "I guess that is what they need to do. I don't know." HISTORY OF PRESENT ILLNESS: This is a 73-year-old white male known to me from his stay at [facility] in [place], [place]. The patient was to be admitted to the [facility] at [facility], but he ended up ongoing medical as he was evaluated in the Emergency Room for medical clearance and found to be hypotensive and in acute renal failure. After he was medically stabilized, he was sent to the [facility] for further psychiatric treatment. The patient had been increasingly confused and disoriented while at [facility]. He had not been attending to his ADLs and was openly urinating and defecating in his bed and would not allow people to change him and attend to him. He was also not eating and his overall oral intake was such that he had lost a significant amount of weight. When attempted to be redirected, the patient became verbally abusive and physically combative with staff. The patient had previous to his placement at [facility] been found to be living in horrible condition and was hoarding many items in his house, which had to be condemned. The patient was now admitted to the [facility] to rule out further organic factors to attempt to stabilize on medication and to determine the least restrictive environment to which he could return when stable. SUMMARY OF HOSPITAL COURSE: The patient was admitted to the unit where initially his Luvox dose was increased from 50 mg in the morning and 100 mg at night to 50 mg twice daily and 150 mg at night in an effort to impact positively on his mood and his obsessive compulsive issues. The patient was started on Risperdal M-Tab 0.5 mg twice daily in an effort to decrease some of his mood lability and agitation. Additionally, he was found to have significant cognitive issues which he hides rather well with confabulation. Exelon patch 4.6 mg a day and Namenda 5 mg a day were started to impact positively on his cognitive status. During the early part of his stay, it became very evident that the patient was not eating, drinking, or attending to his ADLs well. Despite the increase in the Luvox, this did not impact positively on these symptoms, so it was ultimately discontinued in lieu of Remeron 15 mg at bedtime. Additionally, because his oral intake was so low, he was started on Marinol 2.5 mg twice daily, which later was increased to 5 mg twice daily with excellent results. With the combination of the Marinol and the Remeron, the patient did start eating much more consistently and did gain weight during his stay. Throughout his stay, the Exelon and Namenda were both increased to their maximum doses with Exelon patch being brought to a 13.3 mg a day dose and the Namenda 10 mg twice daily. Toward the latter part of his stay, he willingly came out of his room went to groups, went to eat his meals, and was actually spontaneous in his interactions with others. He tolerated the current medication regimen well without any apparent side effects. Patiently was ultimately discharged back to [facility] for further care. MENTAL STATUS AT DISCHARGE: The patient was alert and oriented to person, select others as he was able to clearly respond to me as Dr. Kelly, but not [place], [place] DISCHARGE SUMMARY [facility]: [facility] [id number] UNIT #: [id number] ROOM: [facility] DOCTOR: PIERCE PHAM MD BIRTHDATE: [birth year] necessarily time. The patient was relatively euthymic. He was spontaneous and bright. He voiced no complaints. There is no symptom suggestive of hypomania or franki. There were no overt auditory or visual hallucinations. No voiced delusions were present. Short-term memory continued to be poor, but this towards the latter part of his stay did seem to improve slightly. DISCHARGE DIAGNOSES: Major depression, recurrent and Alzheimer's dementia. DISPOSITION: All of his prescriptions have been printed, signed, and sent to [facility] with the patient. I will be the treating psychiatrist upon his readmission to [facility]. At the time of discharge, he was psychiatrically and medically stable. PIERCE PHAM MD CM:CUCA Martinez: 05/02/1910 PIERCE PHAM MD 05/02/1925 interface
[~2019-04-17 12:37] MED LIST: ATORVASTATIN CA40 M1 PO; CLOPIDOGREL75 MG PO; COMPLETE SENIO1 EACH PO; FLUVOXAMINE MA100 MG PO; FLUVOXAMINE50 MG PO; ISOSORBIDE30 MG PO; KETOROLAC30 MG/1 M1 IJ; KETOROLAC30 MG/1 ML IM; LEVAQUIN750 M1 PO; LOPRESSOR25 MG PO; MIRALAX POWDER17 G1 PO; NITROGLYCERIN0.4 MG SL; NORVASC5 MG PO; SENNA-LAX8.6 MG PO; THIAMINE HCL100 MG PO; TRAMADOL HCL50 MG PO; VITAMIN D35000 UNIT PO; ZESTRIL2.5 MG PO; ZOLOFT25 MG PO
--- NOTE | 2019-04-17 14:25 | NUR ---
MARY GRACE LEUNG a 73 year old M admitted via wheel chair from the ADMITTING as a emergency 72 hr. hold admission. Arrived on unit at 1425. ALLERGIES: NKA. Vital signs are: 97.4-111-17 116/80. The client signed the following forms with stated understanding: Authorization For The Release of Medical Information, Clothing List, Consent to Voluntary Admission and Hospitalization, Consent and Release Forms/Receipt of Rights, Acknowledgement of Advance Directive Information, Behavioral Health Consent Form, and Informed Consent of Medications. Admitted under the services of Dr. ANKIT PINEDA,[facility]. A search was conducted and hazardous articles were removed. Client was oriented to the unit. MIGUEL PLASCENCIA
[2019-04-17 14:40] VITALS: BP 116/80
--- NOTE | 2019-04-17 15:00 | NUR ---
DR. SAMANIEGO NOTIFIED OF NEW ADMISSION, MEDICATIONS AND DIAGNOSIS UPATED FOR REVIEW.
--- NOTE | 2019-04-17 16:25 | NUR ---
TYLENOL GIVEN AT CLIENTS REQUEST. STATES IT MAKES HIM FEEL BETTER. CLIENT VERY HOPELESS/HELPLESS AND AGGITATED WITH ASSESSMENT. THINKS HE IS HERE TO . REFUSES TO ACCEPT POSITIVE REINFORCEMENT AND EMOTIONAL SUPPORT
--- NOTE | 2019-04-17 16:55 | NUR ---
refusing dinner. threatening to tank because he says he was told he was going to the jail not a "crazy place". assisted to bathroom and was told to leave
--- NOTE | 2019-04-17 18:00 | NUR ---
TYLENOL MODERATLY EFFECTIVE FOR DISCOMFORT
--- NOTE | 2019-04-17 18:23 | NUR ---
MESSAGE LEFT FOR MIGUEL BENNETT REGARDING ADMISSION/PINK SLIP. AWAITING RETURN CALL.
[2019-04-17 20:00] VITALS: BP 143/90
--- NOTE | 2019-04-17 21:48 | NUR ---
24 HR chart check completed.
--- NOTE | 2019-04-18 00:40 | NUR ---
P-DEPRESSED, IRRITABLE I-VERBAL INTERVENTION FOR EMOTIONAL SUPPORT, ASSESS ORIENTATION, ENCOURAGE SOCIAL INTERACTION, ADMINISTER MEDS, MONITOR SLEEP R-MOOD IS DEPRESSED WITH IRRITABLE OVERTONES & NUMEROUS NEGATIVE REMARKS. ALERT TO PERSON & PLACE. DISINTERESTED IN REORIENTATION OR CONVERSATION WITH STAFF. HAS REMAINED ISOLATIVE TO HIS ROOM. 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 VERBAL INTERACTIONS WITH STAFF ARE NON SPECIFIC CONSISTENT COMPLAINTS. REFUSED TO COME OUT OF HIS ROOM & REMAINED LAYING IN BED. USING BEDSIDE HAND URINAL. REFUSED HS SNACK. TAKING FLUIDS. COMPLIANT TAKING HS MEDICATIONS. DR RONDON ON THE UNIT TO SEE PT FOR MEDICAL CONSULT. REQUESTED & MEDICATED WITH TYLENOL 650 MG FOR GENERALIZED BODY DISCOMFORT @ 2024. MODERATE RELIEF OBTAINED & PT HAS BEEN SLEEPING QUIETLY PAST 2200. DENIES SUICIDAL FEELINGS. DENIES SENSORY DISTURBANCE & NONE IS EVIDENT. NO DELUSIONS VOICED. P-CONTINUE TO MONITOR & PROVIDE PHYSICAL ASSISTANCE & EMOTIONAL SUPPORT NEEDED.
--- NOTE | 2019-04-18 05:56 | NUR ---
PT HAS SLEPT QUIETLY PAST 2300.
--- NOTE | 2019-04-18 06:00 | NUR ---
PT CONTINUES TO REFUSE SKIN ASSESSMENT.
[2019-04-18 07:23] VITALS: BP 130/82
--- NOTE | 2019-04-18 07:28 | NUR ---
PHYSICAL THERAPY Nursing screen received. PT orders also received. Thank you. Archana Plata,PT
--- NOTE | 2019-04-18 08:15 | NUR ---
Treatment Plan meeting with Dr. Ramez RN and [facility]. Plan for discharge next week. Will call [facility] today to discuss discharge Plans.
[2019-04-18 08:27] LABS: CHOLESTEROL 89 mg/dL (<200); HDL CHOLESTEROL 38 mg/dl (40-60); LDL CHOLESTEROL 34 mg/dL (9-159); TRIGLYCERIDES 86 mg/dl (<150); VLDL CHOLESTEROL 17 mg/dL (6-40)
[2019-04-18 09:29] LABS: VITAMIN D, 25-HYDROXY 42.5 ng/mL (30-100)
--- NOTE | 2019-04-18 09:40 | NUR ---
Nursing screen received. Occupational Therapy referral received. Thank you. Jayleen Hdez OTR/L
--- NOTE | 2019-04-18 09:52 | NUR ---
psychosocial hx completed this date.
--- NOTE | 2019-04-18 10:46 | NUR ---
Spoke with Electrical Equipment Technician at [facility]. Pt. will return to facility at discharge. Clinical Updates faxed to [facility].
--- NOTE | 2019-04-18 12:01 | NUR ---
P: IRRITABLE, DEMANDING, SACRASTIC, NEGATIVE OVERTONE, VOICES BEING DEPRESS, STATING "WOULDN'T YOU BE DEPRESSED IF YOU WERE IN THE HOSPITAL" I: ONE ON ONE, REDIRECTION, SPACE PROVIDED R: PATIENT IS ALERT TO PERSON, PLACE (HOSPITAL) AND SITUATION WITH CONFUSION. MEMEORY GAPS NOTED; ABLE TO VOICE NEEDS. MOOD IS IRRITABLE AND DEMANDING. DENIES ANY HI/SI OR PAIN. COMPLAINT WITH MEDICATIONS, EDUCATION PROVIDED. Q 15 MINUTE SAFETY CHECKS MAINTAINED. 1 PERSON ASSIST [facility] ACTIVITIES OF DAILY LIVING, CONTINENT OF BOWEL AND BLADDER. SET UP FOR MEALS, POOR PO INTAKES; MUCH ENCOURAGEMENT TO EAT/DRINK. ENCOURAGE PATIENT TO HIS OWN NEEDS. PATIENT SHOWERED. HAIR REMAINS MATTED IN THE BACK OF HEAD. SKIN ASSESSMENT COMPLETED. BRUISE NOTED TO RIGHT HAND, SENILE PURPURA TO BILATERAL ARMS. PATIENT IS INTERACTIVE WITH STAFF WITH SACRASTIC TONE; WHEN PATIENT IS ENCOURAGED TO DO SELF CARE, STARTS HAVING SOMATIC COMPLAINTS OF BEING NAUSIOUS THEN GETS UPSET WHEN PROVIDED WITH VERBAL PROMPTING TO CARE FOR SELF. PATIENT HAS TO BE DIRECTED TO CARE FOR SELF WITH ASSIST. PATIENT UP IN WHEELCHAIR SITTING AT TABLE EATING LUNCH, 25% CONSUMED. P: CONTINUE TO MONITOR MOOD, PARANOIA, AGGRESSION, MEDICATION COMPLIANT AND ABILITY OF TO CARE FOR SELF. PROVIDE ONE ON ONE, REDIRECTION; DIRECTION TO CARE FOR SELF, MONITOR COMPLAINCE.
--- NOTE | 2019-04-18 13:57 | NUR ---
PHYSICAL THERAPY Patient evaluated on 3, full evaluation to follow. D/C PT after evaluation, patient non ambulatory and (I) with transfetrs to/from bed/wheelchair observed and staffing reports (i) restroom transfers and (i) wheeling wheelchair down etienne. Return to shelter care , as prior. PAtient is moderate complexity via chart review, tests and evaluation: 69361. Thank you for this referral. Archana Plata,PT
--- NOTE | 2019-04-18 14:01 | NUR ---
Spoke to Erika botello [facility], , regarding inpatient mental health. Ref # [id number]. Awaiting return call for initial clinical from career professional.
--- NOTE | 2019-04-18 14:41 | NUR ---
Occupational Therapy evaluation completed on 3 with full eval to follow. Precautions include 3n unit precautions, w/c dependent, needs verbal instructions and cue for all ADLs, independent in tranfers to w/c,bed,toilet and w/c mobility, low complexity level 90112 via chart review,testing and evaluation. Recommend no further OT and LTC upon d/c. Thank you for this referral. Jayleen Hdez OTR/L
--- NOTE | 2019-04-18 16:06 | NUR ---
Shift chart check completed.
[2019-04-18 20:00] VITALS: BP 96/62; BP 96/66
--- NOTE | 2019-04-18 23:35 | NUR ---
P-DEPRESSED, IRRITABLE, SARCASTIC I-VERBAL INTERVENTION FOR EMOTIONAL SUPPORT, ASSESS ORIENTATION, ENCOURAGE SOCIAL INTERACTION, ADMINISTER MEDS, MONITOR SLEEP R-MOOD IS DEPRESSED WITH IRRITABLE OVERTONES & NUMEROUS NEGATIVE REMARKS. ALERT TO PERSON & PLACE. DISINTERESTED IN REORIENTATION OR CONVERSATION WITH STAFF. DID SIT IN THE DINING ROOM THIS EVENING WITH MUCH PROMPTING. MEMORY DEFICITS, BOTH SHORT & ASSISTED. VERBAL INTERACTIONS ARE SARCASTIC & NEGATIVE USING BEDSIDE HAND URINAL. ATE HS SNACK. TAKING FLUIDS. COMPLIANT TAKING HS MEDICATIONS. REQUESTED & MEDICATED WITH TYLENOL 650 MG FOR GENERALIZED BODY DISCOMFORT. DENIES SUICIDAL FEELINGS. DENIES SENSORY DISTURBANCE & NONE IS EVIDENT. NO DELUSIONS VOICED. P-CONTINUE TO MONITOR & PROVIDE PHYSICAL ASSISTANCE & EMOTIONAL SUPPORT NEEDED.
--- NOTE | 2019-04-19 05:49 | NUR ---
PT HAS BEEN RESTING QUIETLY IN BED & HAS SLEPT PAST 0230
--- NOTE | 2019-04-19 07:24 | NUR ---
PT MEDICATED WITH TYLENOL 650 MG PO FOR C/O GENERALIZED BODY DISCOMFORT. RATED PAIN 7/10.
--- NOTE | 2019-04-19 07:42 | NUR ---
PT AWAKE, ALERT AND VERBAL. EATING BREAKFAST IN DINING ROOM WITH PEERS.
[2019-04-19 07:55] VITALS: BP 121/74
--- NOTE | 2019-04-19 08:43 | NUR ---
ON UNIT TO SEE PT AT THIS TIME, UPDATE GIVEN.
--- NOTE | 2019-04-19 09:30 | NUR ---
ON UNIT TO SEE PT AT THIS TIME
--- NOTE | 2019-04-19 11:09 | NUR ---
P- DEPRESSED MOOD, IRRITABLITY, SARCASTIC TONE. PT ANSWERS MOST QUESTIONS WITH "WHATEVER". ISOLATIVE TO ROOM, REFUSES TO PARTICIPATE IN GROUPS OR ACTIVITIES DESPITE ENCOURAGEMENT FROM STAFF AND . I- ORIENTATION, MOOD AND BEHAVIOR ASSESSED. ASSESSED PT FOR SI/HI, INTENT OR PLAN. ASSESSED PT FOR S/S HALLUCINATIONS, PARANOIA AND/OR DELUSIONS. MEDICATIONS ADMINISTERED PER PHYSICIAN'S ORDERS. ASSISTANCE WITH ADL CARE PROVIDED NEEDED. ENCORUAGED PT TO ATTEND AND PARTICIPATE IN DAVE MILIEU GROUPS AND ACTIVITIES. R- PT IS ALERT AND ORIENTED. RESPS EASY AND EVEN ON ROOM AIR. MEMORY APPEARS TO BE INTACT. PT RELUCTANT TO ENGAGE IN CONVERSATION AND ANSWERS MOST QUESTIONS WITH "WHATEVER". PT REPORTS FEELING "A LITTLE DEPRESSED", IRRITABILITY NOTED. AFFECT IS FLAT, PT CONTINUES TO BE SARCASTIC IN TONE WHEN SPEAKING WITH STAFF. PT DENIES FEELING HOPELESS. PT DENIES SI/HI, INTENT OR PLAN. PT DENIES HALLUCINATIONS, NO RESPONSE TO INTERNAL STIMULI NOTED. NO PARANOIA/DELUSIONS NOTED. ENCOURAGED PT TO COME TO GROUP BY THIS RN AND , PT BECAME ANGRY AND STATES "I'M NOT DOING THAT CRAP. I NEED MY TV AND PHONE, I'M PAYING FOR THEM". REMINDED PT THERE IS A TV IN DINING ROOM AND PHONE AT NURSE'S STATION AVAILABLE FOR USE. PT CONTINUES TO REFUSE TO COME OUT OF ROOM. PT IS MEDICATION COMPLIANT WITHOUT DIFFICULTY, CONTINUES ON COURSE OF PO LEVAQUIN FOR +UTI, NO ADVERSE REACTIONS NOTED. P- PLAN TO CONTINUE CURRENT TREATMENT; CONTINUE TO MONITOR MOOD AND BEHAVIORS, PROVIDE APPROPRIATE REORIENTATION, REDIRECTION AND 1:1 NEEDED. CONTINUE TO ENCOURAGE MEDICATION COMPLIANCE WELL GROUP ATTENDANCE AND PARTICIPATION.
--- NOTE | 2019-04-19 11:46 | NUR ---
AM GROUP/EXERCISES/GAMES PT CHOSE TO REMAIN IN ROOM ALTHOUGH ENCOURAGED TO ATTEND AND PARTICIPATE IN GROUP. PT WILL CONTINUE TO BE ENCOURAGED TO ATTEND AND PARTICIPATE IN FUTURE GROUP SESSIONS.
--- NOTE | 2019-04-19 11:58 | NUR ---
PT UP AND OUT OF ROOM FOR LUNCH AT THIS TIME, EATING LUNCH IN DINING ROOM WITH PEERS.
--- NOTE | 2019-04-19 15:34 | NUR ---
PRN TYLENOL 650MG PO GIVEN AT THIS TIME PER PT REQUEST FOR C/O GENERALIZED PAIN/DISCOMFORT NOT RATED ON PAIN SCALE. WILL MONITOR FOR EFFECTIVENESS OF MEDICATION. ENCOURAGED PT TO ATTEND GROUP, PT STATES "NO. I'VE BEEN TO A BUNCH OF GROUPS".
--- NOTE | 2019-04-19 15:49 | NUR ---
SHIFT CHART CHECK COMPLETED.
--- NOTE | 2019-04-19 16:04 | NUR ---
PM GROUP/LEISURE SKILLS PT ENCOURAGED TO ATTEND AN DPARTICIPATE BUT CHOSE TO REMAIN IN ROOM. PT STATES "MAYBE TOMORROW" PT WILL CONTIJNUE TO BE ENCOURAGED TO ATTEND AN DPARTICIPATE IN FUTURE GROUP SESSIONS.
--- NOTE | 2019-04-19 17:55 | NUR ---
PT APPEARS LESS IRRITABLE THIS EVENING, NO FURTHER COMPLAINTS OF PAIN. WARM BLANKETS PROVIDED PER PT'S REQUEST. PT STATED "THANK YOU, I APPRECIATE IT."
[2019-04-19 20:00] VITALS: BP 110/60
--- NOTE | 2019-04-19 20:32 | NUR ---
PRN TYLENOL 650MG PO GIVEN AT THIS TIME PER PT REQUEST FOR C/O GENERALIZED PAIN/DISCOMFORT NOT RATED ON PAIN SCALE. PT STATES "I'VE BEEN TAKING THIS FOR YEARS". WILL MONITOR FOR MEDICATION EFFECTIVENESS.
--- NOTE | 2019-04-19 20:49 | NUR ---
NOTIFIED MANUAL BP 110/60 HR 92, STATES OK TO GIVE LOPRESSOR 25MG TONIGHT. WITNESSED BY 2ND RN [facility].
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
--- NOTE | 2019-04-19 22:22 | NUR ---
PRN NITRO GIVEN PER EMAR. PT STATES STATES HE IS FEELING "BETTER". EKG ON UNIT AT THIS TIME.
--- NOTE | 2019-04-19 22:35 | NUR ---
NOTIFIED EKG COMPLETED FOR REVIEW, STATES HE WILL LOOK AT IN IN THE COMPUTER. MADE AWARE PT REPORTS FEELING BETTER AFTER NITRO X1. STATES "OK, THANK YOU"
--- NOTE | 2019-04-19 22:49 | NUR ---
LAB ON UNIT AT THIS TIME.
--- NOTE | 2019-04-19 23:27 | NUR ---
DR. CHARLTON NOTIFIED OF TROPONIN RESULT OF 0.016. DR. CHARLTON STATED "OKAY, THATS FINE". NO NEW ORDERS AT THIS TIME.
--- NOTE | 2019-04-20 00:03 | NUR ---
24 HR chart check completed.
--- NOTE | 2019-04-20 00:04 | NUR ---
PT STATED THAT THE PRN TYLENOL GIVEN EARLIER WAS EFFECTIVE.
--- NOTE | 2019-04-20 04:55 | NUR ---
PT SLEPT FROM 2300 AND CURRENTLY IS SLEEPING QUIETYLY
[2019-04-20 08:00] VITALS: BP 125/65
--- NOTE | 2019-04-20 08:39 | NUR ---
P: ISOLATIVE, POOR HYGEINE, LACK OF INTEREST, POOR, APPETITE I: ENCOURAGE GROUP PARTICIPATION, STAFF TO PROMPT HIM TO COMPLETE HYGEINE, 1:1 THERAPEUTIC ACTIVITIES, R: NO SI, HI OR DELUSIONS PRESENT, PT STATES HE JUST DOESN'T FEEL GOOD EVER. DR PHAM ON UNIT TO SEE PT. P: CONTINUE TO INTERACT WITH PT, ENCOURAGE MEDICATION COMPLIANCE, OFFER SNACKS POSSIBLE.
--- NOTE | 2019-04-20 11:30 | NUR ---
P: ISOLATIVE I: 1:1 ON CONVERSATION WITH PT IN REFERENCE TO HOW LAYING IN BED AND NOT BEING AROUND PEOPLE IS NOT HELPING HIS MOOD. ENCROUGED HIM TO GET UP FROM BED AND COME TO GROUP. R: PT INTERACTED AND MADE EYE CONTACT WITH STAFF, REQUESTED TO GO TO THE BATHROOM AND THEN RETURNED TO GROUP P: CONTINUE TO PROMOTE CARE AND INTERACTION, MAINTAIN 15 MIN CHECKS AT THIS TIME. NO SI/ HI OR DELUSIONS REPORTED.
--- NOTE | 2019-04-20 11:34 | NUR ---
DR. PHAM ON UNIT TO SEE PT. UPDATED THAT HE IS ASKING FOR TYLENOL APPROX EVERY 6-8 HOURS FOR PAIN IN CHEST THAT PATIENT STATES HAS BEEN CHRONIC SINCE AN [place]IDENT [place] [address]. DR PHAM STATED TO CONTINUE TO GIVE PRN REQUESTED BY PATIENT
--- NOTE | 2019-04-20 12:09 | NUR ---
AM GROUP/EXERCISES/ART/GAMES PT ATTENDED GROUP BUT CHOSE NOT TO PARTICIPATE. PT QUIET TO SELF AND OBSERVED GROUP. PT DID NOT BECOME AGGRESSIVE AT THIS TIME AND WILL CONTINUE TO ATTEND FUTURE GROUP SESSIONS AND BE ENCOURAGED TO PARTICIPATE TO BEST OF PT ABILITY.
--- NOTE | 2019-04-20 17:05 | NUR ---
SHIFT CHART CHECK COMPLETED.
[2019-04-20 20:15] VITALS: BP 120/62
--- NOTE | 2019-04-20 21:57 | NUR ---
Patient alert and oriented. Patient isolative to room and refused HS snacks. Denies SI/HI at this time. No hallucinations/delusions noted at this time. Patient compliant with medications without any difficulty. Provided 1:1 for expression of feelings. Plan to continue to encourage medication compliance and to continue to provide 1:1 for emotional support. Q 15 minute safety checks continued and maintained. See [facility] flowsheet for further documentation.
--- NOTE | 2019-04-21 00:14 | NUR ---
24 HR chart check completed.
--- NOTE | 2019-04-21 05:32 | NUR ---
Patient slept approx. 8 hours throughout shift. Q 15 minute safety checks continued and maintained.
[2019-04-21 07:26] VITALS: BP 118/65
--- NOTE | 2019-04-21 11:46 | NUR ---
AM GROUP/EXERCISES/GAMES PT ENCOURAGED TO ATTEND AND PARTICIPATED BUT PT STATES "IM JUST GOING TO STAY IN BED" PT WILL CONTINUE TO BE ENCOURAGED TO ATTEND AN DPARTICIPATE IN FUTURE GROUP SESSIONS.
--- NOTE | 2019-04-21 13:01 | NUR ---
PT WITHDRAWN, ISOLATIVE TO SELF. HOPELESS/HELPLESS. PT REFUSED BREAKFAST, ENCOURAGED TO COME OUT FOR LUNCH, PT REQUIRING ASSISTANCE TO GET OUT OF BED. PT SAT IN WHEELCHAIR AT END OF KEENE, REFUSING TO PROPEL SELF IN WHEELCHAIR. PT ENCOURAGED TO USE ALL EXTREMITIES APPROPRIATE TO PROPEL SELF, PT ABLE TO DO SO WITHOUT DIFFICULTY. PT CONSUMED LUNCH AND THEN PROPELLED SELF BACK TO ROOM. WILL CONTINUE TO ENCOURAGE PT TO ENGAGE IN DAVE MILIEU. WILL ENCOURAGE PARTICIPATION IN GROUP THERAPY/ACTIVITY. WILL RPOVIDE EMOTIONAL SUPPORT AND 1:1 APPROPRIATE. Q 15 MIN MONITORING FOR SAFETY.
--- NOTE | 2019-04-21 14:53 | NUR ---
PT REQUESTING TYLENOL FOR C/O GENERAL DISCOMFORT "ALL OVER". ADMINISTERED TYLENOL 650MG PER PRN ORDER.
--- NOTE | 2019-04-21 15:51 | NUR ---
PM GROUP/FLORINDA PT CHOSE TO REMAIN IN BED DURING GROUP. PT WILL CONTINUE TO BE ENCOURAGED TO ATTEND AND PARTICIPATE DURING GROUP SESSIONS.
--- NOTE | 2019-04-21 16:47 | NUR ---
PT IN DINING ROOM AWAITING SUPPER. STATES TYLENOL WAS MINIMALLY EFFECTIVE, EDUCATED THAT NEXT DOSE AVAILABLE 1852, VERBALIZED UNDERSTANDING.
--- NOTE | 2019-04-21 17:07 | NUR ---
Shift chart check completed.
[2019-04-21 20:00] VITALS: BP 121/67
--- NOTE | 2019-04-21 20:19 | NUR ---
Patient complaining of back pain rating a 6 out of 10. Requesting and Received at this time PRN Tylenol 650mg PO per PRN order. Will monitor for effectiveness.
--- NOTE | 2019-04-21 21:20 | NUR ---
P: Confused, Alert to person and time only. Covers up confusion by asking the same question in different ways. Isolative/Withdrawn. Hopeless/Helpless. c/o back pain. I: 1:1 interaction with emotional support and verbalization of feelings. Reorient patient to place and situation. Reorient when confusion noted. Encourage patient to come out to dining room for HS snack and socialization. Assess patients mood, SI/HI. Provide medications on time with education, provide PRN medications as prescribed (See EMAR). R: Reorientation effective. Patient refused to come out of room to the dining room, refused HS snack. Patient stated that he feels fine. Denies hallucinations, delusions, SI/HI. Patient asking questions about when he is going to be getting out of here and where he would be going. When patient was told that the information systems planner and the doctor was working on it for him and would notify him when they knew; patient asked multiple questions about the same subject just in different manner. Medication compliant with no difficulties. Remains isolative to room. Affect flat. P: Continue to orient patient when confusion is noted. Reassure patient that we have people helping him with his case and answer questions. Monitor patients mood. Provide medications prescribed by the physician on time with education on each med. Encourage to come out to the dining room during the day for meals, socialization, and group therapies. Assist with ADLs, transferring. 1:1 interaction with emotional support when necessary. [place] program. Q15 minute checks maintained for safety.
--- NOTE | 2019-04-21 22:10 | NUR ---
Patient states that tylenol was slightly effective. Denies needing anything at this time.
--- NOTE | 2019-04-22 01:11 | NUR ---
24 HR chart check completed.
--- NOTE | 2019-04-22 02:18 | NUR ---
Patient came down around 2300 on 04/21/19 in his wheelchair wanting a snack. Reminded patient that when snack was offered he had refused to come down. Provided patient with water, a sandwich, and fruit cup. When patient was done eating, he wheeled himself to the door and was yelling "hey" to staff members. Patient stated "I need to eat before I go to bed". Reminded patient that he already ate just a second ago and now it was time to go back to bed. Patient stated "No I did not! Then I can just get a snack in my room!". Reminded patient of unit rules and that only water was allowed in the patients rooms. Patient went to bed after this, laying in bed with eyes open. Respirations even and unlabored on room. Q15 minute checks maintained for safety.
--- NOTE | 2019-04-22 05:45 | NUR ---
PATIENT COMPLAINING OF GENERALIZED PAIN. PATIENT RATING PAIN A 7 OUT OF 10. REQUESTING AND RECEIVED AT THIS TIME TYLENOL 650MG PER PRN ORDER. WILL MONITOR FOR EFFECTIVENESS.
--- NOTE | 2019-04-22 06:53 | NUR ---
ON Q15 MINUTE CHECKS PATIENT SLEPT 3 HOURS OF INTERRUPTED SLEEP.
--- NOTE | 2019-04-22 06:58 | NUR ---
PATIENT STATING THAT THE TYLENOL WAS EFFECTIVE. NO COMPLAINTS AT THIS TIME.
[2019-04-22 07:56] VITALS: BP 140/81
--- NOTE | 2019-04-22 08:00 | NUR ---
Treatment Plan meeting with Dr. Myrick, RN, AT, SW and Bed Manager. Plan for discharge next week. Pt. will return to [facility] at discharge.
--- NOTE | 2019-04-22 11:20 | NUR ---
DR. PHAM ON UNIT TO ASSESS PATIENT.
--- NOTE | 2019-04-22 12:12 | NUR ---
AM GROUP/MUSIC/GAMES PT ATTENDED HALF OF GROUP AND PARTICIPATED THROUGH OBSERVATION AND ATTEMPTED AT MUSIC Wild PocketsING GAME. PT FLAT AFFECT WITH NO AGGRESSION NOTED. PT WILL CONTNIUE TO BE ENCOURAGED TO ATTEND AND PARTICIPATE IN ANY FUTURE GROUP ACTIVITYS.
[2019-04-22 13:00] VITALS: BP 82/60
--- NOTE | 2019-04-22 13:01 | NUR ---
PATIENT COMPLAINING OF HEART/CHEST PAIN, RATING 7/10; NO DIPHORSIS/EMSIS, NO COMPLAINTS OF RADIATING. MANUAL BP 82/60. NO COMPLAINS OF BEING DIZZY. DR. PABON NOTIFIED.
--- NOTE | 2019-04-22 13:03 | NUR ---
Spoke to Adelita at [facility] regarding authorization for mental health inpatient. No one is available to take the call, a career development director will return my call. Awaiting return call.
--- NOTE | 2019-04-22 13:49 | NUR ---
PATIENT COMPLAINED OF HAVING A HEADACHE, PRN TYLENOL 650MG PO GIVEN AT THIS TIME.
--- NOTE | 2019-04-22 13:49 | NUR ---
PATIENT COMPLAINING OF HAVING A HEADACHE, PRN TYLENOL 650MG PO GIVEN AT THIS TIME.
--- NOTE | 2019-04-22 13:52 | NUR ---
[facility] PRESENT, PATIENT ASSISTED TO [facility], ALL BELONGING AND DISCHARGE INSTRUCTIONS SENT WITH PATIENT OFF UNIT.
--- NOTE | 2019-04-22 14:06 | NUR ---
Spoke to Lucero at [employer]. [employer] kath 7 days, NRD 04/23. Ref # [id number]. Concurrent reviewer will be Dipti [phone].
--- NOTE | 2019-04-22 14:12 | NUR ---
Spoke with pt's daughter Lowell Pinto this AM to confirm that she wants to be pt's guardian. Educated Lowell about the responsibilities of being one's guardian. [facility] who stated that Lowell would need to download guardianship packet from the court's website, complete the documents, and bring them to the probate court. Informed Chidi that the original Statement of Expert Evaluation would be in today's mail and also faxed a copy to his attention. Spoke to Lowell again and informed her of this publications writer's conversation with Chidi.
--- NOTE | 2019-04-22 14:49 | NUR ---
PATIENT RESTING IN BED, NO FURTHER COMPLAINTS. PRN TYLENOL EFFECTIVE.
--- NOTE | 2019-04-22 15:50 | NUR ---
Clinical Updates faxed to [facility].
--- NOTE | 2019-04-22 16:23 | NUR ---
DR. PABON NOTIFIED OF EKG RESULTS.
[2019-04-22 16:32] VITALS: BP 118/70
--- NOTE | 2019-04-22 19:28 | NUR ---
P: PREOCCUPIED AND FOCUSED ON WANTING TYLENOL I: ONE ON ONE, REDIRECTION, REPOSITIONED R: INEFFECTIVE. PRN TYLENOL GIVEN FOR C/O H/A. PATIENT IS ALERT TO PERSON AND PLACE WITH CONFUSION; MEMORY DEIFICIT NOTED. MEDICATION COMPLAINT. Q 15 MINUTE SAFETY CHECKS. 1 PERSON ASSIST WITH CONTACT GUARD FOR ACTIVITIES OF DAILY LIVING, CONTINENT OF BOWEL AND BLADDER. SET UP FOR MEALS WITH MUCH ENCOURAGEMENT TO EAT AND DRINK. PARTICIPATED IN GROUP SESSION P: CONTINUE TO MONITOR MEDICATION COMPLIANCE, SELF CARE AND AGGRESSION. CONTINUE TO PROVIDE ONE ON ONE AND REDIRECTION NEEDED.
--- NOTE | 2019-04-22 21:05 | NUR ---
24 HR chart check completed.
--- NOTE | 2019-04-22 22:56 | NUR ---
P-DEPRESSED, NEGATIVE THINKING I-PROVIDE VERBAL INTERVENTION FOR EMOTIONAL SUPPORT, ENCOURAGE PARTICIPATION IN UNIT ACTIVITIES & ENCOURAGE PT TO GET OUT OF BED & SOCIALIZE. ADMINISTER MEDICATIONS, MONITOR SLEEP R-DEPRESSED & ISOLATIVE & REMAINS IN HIS ROOM. CONTINUES TO HAVE LIMITED VERBAL INTERACTIONS WITH STAFF & VOICES NEGATIVE REMARKS. ALERT TO PERSON & PLACE & IS DISINTERESTED IN SOCIALIZING, COMING OUT OF HIS ROOM OR PARTICIPATING WITH ACTIVITIES ON THE UNIT. HAS FREQUENTLY USED CALL DEL [facility]ST[facility] & HAS FREQUENT REQUESTS FOR SIMPLE THINGS THAT HE IS ABLE TO DO HIMSELF. "PULL MY COVERS UP ON ME. HAND ME MY CUP." DESPITE PROMPTING THAT HE IS ABLE TO DO THESE TASKS BY HIMSELF. REFUSED HS SNACK. COMPLIANT TAKING HS MEDICATIONS WHOLE. DOES USE BEDSIDE URINAL & GETS UP TO GO TO THE BATHROOM WITH ASSISTANCE OF HIS WHEELCHAIR. P-CONTNUE TO MONITOR & PROVIDE PHYSICAL ASSISTANCE & EMOTIONAL SUPPORT NEEDED.
--- NOTE | 2019-04-23 05:41 | NUR ---
PT HAS SLEPT PAST 2214.
[2019-04-23 07:37] VITALS: BP 90/60
--- NOTE | 2019-04-23 08:00 | NUR ---
Treatment Plan meeting with Dr. Myrick, RN, SW and State Inspector. Plan for discharge early next week. Pt. will return to [facility] at discharge.
[2019-04-23 08:40] VITALS: BP 120/58
--- NOTE | 2019-04-23 12:29 | NUR ---
ON UNIT TO ASSESS PT, UPDATE PROVIDED.
--- NOTE | 2019-04-23 13:15 | NUR ---
Reviewed [place] [facility] and 72 hour Hold with patient and explained and read process for Voluntary Admission to Unit. Pt. agreeable and Voiced that "I just want to get better". Pt. signed Voluntary Consent for Admission and Copy placed in patient chart.
--- NOTE | 2019-04-23 13:52 | NUR ---
Left voicemail for Dipti, day care teacher, at [facility] with continues review stay clinical at [phone]. Awaiting return call.
--- NOTE | 2019-04-23 13:58 | NUR ---
Shift chart check completed.
[2019-04-23 20:00] VITALS: BP 102/65
--- NOTE | 2019-04-23 22:06 | NUR ---
24 HR chart check completed.
--- NOTE | 2019-04-23 23:06 | NUR ---
P-DEPRESSED, NEGATIVE THINKING I-PROVIDE VERBAL INTERVENTION FOR EMOTIONAL SUPPORT, ENCOURAGE PARTICIPATION IN UNIT ACTIVITIES & ENCOURAGE PT TO GET OUT OF BED & SOCIALIZE. ADMINISTER MEDICATIONS, MONITOR SLEEP R-DEPRESSED & ISOLATIVE BUT DID COME DOWN TO THE DINING ROOM INDEPENDENTLY WHEN PROMPTED FOR HS SNACK & ATE. CONTINUES TO HAVE LIMITED VERBAL INTERACTIONS WITH STAFF & VOICES NEGATIVE REMARKS. ALERT TO PERSON & PLACE & IS DISINTERESTED IN SOCIALIZING. STATED THE YEAR WAS 2009 & HIS RESPONSE TO THE REST OF THE QUESTIONS FOR ORIENTATION WAS "I DONT KNOW & I DONT CARE". CONTINUES TO USE THE CALL [facility] FREQUENTLY FOR SIMPLE REQUESTS & HAS FREQUENTLY ASKED FOR TYLENOL SINCE THE ONSET OF THE SHIFT DESPITE JUST HAVING IT APPROX 1 HOUR EARLIER. ON APPROACH TO PTS ROOM HE WAS NOTED TO HAVE SEVERAL CUPS ON THE FLOOR & HIS DRESSER. ONE TALL CUP NOTED TO BE HALF WAY FULL OF URINE & PT DID ADMIT THAT HE WAS "PISSING IN THE CUPS CAUSE I CANT FIND MY URINAL". INFORMED HIM THAT URINAL WAS SITTING RIGHT BESIDE HIM ON THE DRESSER & IT WAS INAPPROPRIATE TO PEE IN THE CUPS & LEAVE THEM ON THE FLOOR WHEN HE IS CAPABLE OF GETTING UP INDEPENDENTLY & GOING TO THE BATHROOM OR USING HIS URINAL. ALL STYROFOAM CUPS WERE REMOVED FROM PTS ROOM. COMPLIANT TAKING HS MEDICATIONS WHOLE. P-CONTNUE TO MONITOR & PROVIDE PHYSICAL ASSISTANCE & EMOTIONAL SUPPORT NEEDED.
--- NOTE | 2019-04-24 05:46 | NUR ---
PT HAS SLEPT PAST 2330.
[2019-04-24 07:32] VITALS: BP 116/68
--- NOTE | 2019-04-24 08:00 | NUR ---
Treatment Plan meeting with Dr. Myrick, RN, SW and Financial Agent. Plan for discharge next week. Pt. will return to [facility] at discharge.
[2019-04-24 10:03] VITALS: BP 138/92
--- NOTE | 2019-04-24 11:11 | NUR ---
P: ISOLATIVE TO ROOM I: ONE ON ONE AND REDIRECTION, ENCOURAGE PATIENT TO DO SELF CARE FOR ACTIVITIES OF DAILY LIVING AND TO BE OUT OF BED MORE. R: PATIENT UP FOR BREAKFAST, POOR PO INTAKES, PLACED ON 48HR CALORIE COUNT PER DR. PHAM. PATIENT ASSISTED TO SHOWER ROOM AND ENCOURAGED TO PARTICIPATE WITH SHOWER, MINIMAL ASSIST FROM PATIENT NOTED. PATIENT IS ALERT TO PERSON, PLACE AND SITUATION WITH CONFUSION. MEMORY DEFICITS NOTED. MOOD IS DEPRESSED, HOPELESS/HELPLESS WITH FLAT AFFECT. MEDICATION COMPLIANT, Q 15 MINUTE SAFETY CHECKS MAINTAINED. 1 PERSON ASSIST WITH ACTIVITIES OF DAILY LIVING, CONTINENT OF BOWEL AND BLADDER. SET UP FOR MEALS. MUCH ENCOURAGEMENT TO EAT/DRINK. PATIENT ABLE TO SELF PROPEL IN WHEELCHAIR ON UNIT WITHOUT DIFFICULTIES. DENIES ANY HALLUCINATIONS, DELUSIONS, HI/SI OR PAIN. CONTINUE TO MONTIOR PATIENT CARE FOR SELF-ACTIVITIES OF DAILY LIVING, MEDICATION COMPLAINCE, HALLUCINATINS, DELUSIONS. PROVIDE ONE ON ONE AND REDIRECTION NEEDED. P:
--- NOTE | 2019-04-24 11:56 | NUR ---
DR. PHAM ON UNIT TO ASSESS PATIENT.
--- NOTE | 2019-04-24 14:08 | NUR ---
Spoke with pt this afternoon. Pt was asking why he was at [facility]. Explained the events which caused pt's admission. Pt stated that he remembers not trusting people at the nursing facility. Pt questioned when he would be discharged. Informed pt that a date hasn't been decided yet. Pt was pleasant and cooperative during interaction.
[2019-04-24 20:34] VITALS: BP 112/67
--- NOTE | 2019-04-25 02:57 | NUR ---
P-DEPRESSED MOOD I-ASSESS ORIENTATION, MOOD, AND BEHAVIOR. PROVIDE 1:1 WITH EMOTIONAL SUPPORT. ENCOURAGE MEDICATION COMPLIANCE. MONITOR SLEEP. R-PATIENT ALERT AND ORIENTED X3, MOOD DEPRESSED. PT CALM, COOPERATIVE, ISOLATIVE TO SELF. PT REMAINS PREOCCUPIED WITH HS MEDICATION PASS, APPROACHING STAFF ON MULTIPLE OCCASIONS REQUESTING FOR MEDICATIONS. PATIENT EASILY REDIRECTABLE DURING THESE TIMES. REQUESTED PRN TYLENOL 650MG AT 2144 FOR A HEADACHE WITH A RATING OF 7/10. PT MEDICATION COMPLIANT WITHOUT DIFFICULTY AFTER REVIEW. PT DENIES SI/HI AND HALLUCINATIONS, NO NOTED RESPONDING TO INTERNAL STIMULI. NO PARANOIA/DELUSIONS OBSERVED. NO OTHER PHYSICAL COMPLAINTS VOICED AT THIS TIME, PRN EFFECTIVE. PATIENT CURRENTLY LAYING DOWN WITH EYES CLOSED, RESPIRATIONS EASY AND REGULAR, NO SIGNS OR SYMPTOMS OF DISTRESS NOTED. P-CONTINUE TO MONTIOR MOOD AND BEHAVIOR, PROVIDE 1:1 WITH EMOTIONAL SUPPORT NEEDED. ENCOURAGE MEDICATION COMPLIANCE. MAINTAIN Q 15 MIN CHECKS.
--- NOTE | 2019-04-25 05:17 | NUR ---
PATIENT OBSERVED ON Q 15 MIN CHECKS TO HAVE SLEPT APPROX 6 HOURS WITH NO AWAKENINGS OR SIGNS AND SYMPTOMS OF DISTRESS NOTED.
--- NOTE | 2019-04-25 05:22 | NUR ---
24 HOUR CHART CHECK COMPLETED.
[2019-04-25 08:19] VITALS: BP 106/59
--- NOTE | 2019-04-25 09:34 | NUR ---
ON UNIT TO ASSESS PT, UPDATE PROVIDED.
--- NOTE | 2019-04-25 09:47 | NUR ---
P: PT CALM, MOOD IS DEPRESSED AND HOPELESS/HELPLESS. PT ISOALTIVE TO ROOM THROUGHOUT THE DAY. PT PREOCCUPIED WITH MEDS, CONSTANTLY ASKING FOR TYLENOL. I: PT ALERT TO PERSON ONLY, THINKING HE'S IN [place] AND WAS UNSURE OF THE YEAR. ADMINISTERED SCHEDULED MEDICATIONS AND PRN TYLENOL PER PT REQUEST FOR HEADACHE, PROVIDED MED EDUCATION. ENCORUAGED GROUP PARTICIPATION AND SOCIALIZATION, PROVIDED EMOTIONAL SUPPORT AND 1:l FOR PT TO VOICE FEELINGS. ENCOURAGED PT TO PERFORM TASKS THAT HE IS ABLE TO SUCH GETTING HIMSELF INTO HIS WHEELCHAIR AND PROPELLING DOWN THE KEENE TO THE DINING ROOM. R: PT CONTINUES TO ISOALTE TO ROOM AFTER MEALS. PT WILL PERFORM TASKS FOR SELF WITH MUCH ENCOURAGEMENT. P: MONITOR PT BEHAVIORS ON Q15 MIN SAFETY CHECKS, CONTINUE TO PROVIDE MED EDUCATION, PROVIDE EMOTIONAL SUPPORT AND 1:1 FOR PT TO VIOCE FEELINGS, CONTINUE TO ENCOURAGE SOCIALIZATION AND GROUP PARTICIPATION. PT UP TO WHEELCHAIR D/T UNSTEADY GAIT AND LACK OF SAFETY AWARENESS. PT CONTINENT OF BOWEL AND BLADDER. NO HALLUCINATIONS NOTED. PT DENIES ANY SUICIDAL THOUGHTS.
--- NOTE | 2019-04-25 12:00 | NUR ---
Treatment Plan meeting with Dr. Myrick, RN, SW and President & Ceo [employer]. Plan for discharge next week. Pt. will return to [facility] at discharge when stable.
--- NOTE | 2019-04-25 12:26 | NUR ---
P: PT PREOCCUPIED WITH MEDS, CONSTANTLY ASKING FOR BLOOD PRESSURE MEDS AND TYLENOL, PT ARGUEMENTATIVE WITH STAFF STATING " I NEED MY BLOOD PRESSURE MEDICINE, IM GONNA GO OUT OF MY HEAD" I: MED EDUCATION PROVIDED, PROVIDED EMOTIONAL SUPPORT AND 1:1 FOR PT TO VOICE FEELINGS, R: PT CONTINUES TO ARGUE WITH STAFF RE: MEDICATIONS, PT UNRECEPTIVE TO EDUCATION P: CONTINUE TO PROVIDE MED EDUCATION AND PROVIDE EMOTIONAL SUPPORT AND 1:1 FOR PT TO VIOCE FEELINGS.
--- NOTE | 2019-04-25 13:19 | NUR ---
IP 6 additional days kath, 04/24-04/29, NRD 04/29 at 1030 per Dipti at [facility]. Ref # [id number]
--- NOTE | 2019-04-25 16:55 | NUR ---
PT C/O ALL OVER BODY PAINS AND REQUESTED TYLENOL. RATED 7/10 ON A SCALE OF 0-10. PRN TYLENOL 650 MG GIVEN AT THIS TIME. WILL MONITOR EFFECTIVENESS OF MEDICATION.
[2019-04-25 20:00] VITALS: BP 88/65
--- NOTE | 2019-04-25 20:42 | NUR ---
PT MANUAL BP WAS 88/60. CALL PLACED TO DR NINO AND UPDATED ON BP. STATED TO HOLD PM DOSE OF LOPRESSOR AND REPEAT BP IN 30 MINUTES.
--- NOTE | 2019-04-25 22:08 | NUR ---
DR NINO CALLED BACK REGARDING PT BP. UPDATED DR PT BP WAS 86/58 FOR [address] STATED TO CONTINUE TO HOLD LOPRESSOR AND RECHECK IN THE AM PRIOR TO MEDICATIONS. NO ADVERSE S/S NOTED.
--- NOTE | 2019-04-26 06:55 | NUR ---
PT SLEPT APPROXIMATELY 8 HOURS THIS SHIFT. Q15 MINUTE SAFETY CHECKS MAINTAINED.
[2019-04-26 07:45] VITALS: BP 101/60
--- NOTE | 2019-04-26 08:15 | NUR ---
PT RESTING QUIETLY IN BED WITH EYES CLOSED, EASILY AROUSABLE VIA VERBAL/TACTILE STIMULI. RESPS EASY AND EVEN ON ROOM AIR. FRANCOISE LUKE GLASS ARTIST ON UNIT TO SEE PT AT THIS TIME, UPDATE GIVEN.
--- NOTE | 2019-04-26 09:45 | NUR ---
UPDATED WITH MORNING BP - 101/60 MANUAL, HR 68. MADE AWARE LOPRESSOR WAS HELD LAST NIGHT PER FOR BP 88/68 AND RECHECK IN 30 MINS WAS 86/58. MADE AWARE PT DUE TO HAVE IMDUR SA 30MG AND LOPRESSOR 25MG PO THIS AM WITH ROUTINE MEDICATIONS. STATES TO HOLD BOTH. READ BACK AND VERIFIED.
--- NOTE | 2019-04-26 09:52 | NUR ---
PRN TYLENOL 650MG PO GIVEN AT THIS TIME PER PT C/O GENERALIZED DISCOMFORT ALL OVER, PT UNABLE TO GIVE SPECIFIC LOCATION OF PAIN, PT STATES "I JUST HURT ALL OVER". NOT RATED ON PAIN SCALE. ENCOURAGED PT TO REPOSITION AND COME TO GROUP ROOM FOR MORNING GROUP. WILL MONITOR FOR EFFECTIVENESS.
--- NOTE | 2019-04-26 10:00 | NUR ---
ON UNIT TO SEE PT AT THIS TIME.
[2019-04-26 11:00] VITALS: BP 98/58
--- NOTE | 2019-04-26 11:17 | NUR ---
CALL PLACED TO , MADE AWARE PT CONTINUES TO COMPLAIN OF NOT FEELING WELL WITHOUT SPECIFIC COMPLAINT, ONLY SPECIFIC COMPLAINT PT HAS VOICED IS C/O NAUSEA, VITALS FOLLOWS: 97.8-96-18-98/58- 99% ROOM AIR. MADE AWARE PT HAS PRN ZOFRAN 4MG PO NOW ORDER FROM ADMISSION, STATES OK TO GIVE AT THIS TIME.
--- NOTE | 2019-04-26 11:20 | NUR ---
PRN ZOFRAN 4MG SL GIVEN AT THIS TIME FOR C/O NAUSEA, WILL MONITOR FOR EFFECTIVENESS.
--- NOTE | 2019-04-26 11:32 | NUR ---
AM GROUP/LEISURE SKILLS PT ATTENDED FIRST 10 MINUTES OF GROUP THEN WENT BACK TO ROOM. PT WILL CONTINUE TO BE ENCOURAGED TO ATTEND AND PARTICIPATE IN FUTURE GROUP SESSIONS.
--- NOTE | 2019-04-26 12:02 | NUR ---
PT CAME UP TO DINING ROOM INDEPENDENTLY IN WHEELCHAIR, ATE APPROXIMATELY 25% OF LUNCH BEFORE REQUESTING TO RETURN TO HIS ROOM, PT CONTINUES TO OFFER NONSPECIFIC COMPLAINTS OF NOT FEELING WELL. HOSPITALIST TEAM AND PYSCH TEAM AWARE OF PT'S COMPLAINTS. NO ACUTE DISTRESS NOTED. PT STATES "SAVE MY FOOD FOR LATER" AND HAS RETURNED TO BED AT THIS TIME.
--- NOTE | 2019-04-26 13:25 | NUR ---
PT SELF-PROPELLING IN HALLWAY DEMANDING TO GO TO THE EMERGENCY ROOM, STAFF HAS ATTEMPTED TO REORIENT PT AND PROVIDE ASSURANCE THAT HE IS ALREADY IN THE HOSPITAL, HAS BEEN ASSESSED BY FRANCOISE VILLEGAS FROM PSYCH TEAM AND FROM INTERNAL MEDICINE. MADE AWARE VITALS HAVE BEEN ASSESSED X2 THIS SHIFT AND ARE STABLE. NO ACUTE DISTRESS NOTED. PT YELLS AT STAFF "YOU GUYS AREN'T DOING ANYTHING FOR ME. YOU WON'T HELP ME". PT CONTINUES TO BE UNABLE TO RELAY ANY SPECIFIC COMPLAINTS TO STAFF OTHER THAN "I DON'T FEEL WELL" AND C/O NAUSEA. ALL ATTEMPTS TO REORIENT, REDIRECT AND PROVIDE SUPPORT FOR PT PROVE INEFFECTIVE AND ARE ONLY MET WITH INCREASING LEVELS OF AGITATION, PT BEGAN YELLING AND CURSING AT STAFF, DEMANDING SOMEONE TAKE HIM TO THE ER AND HELP HIM TO THE BATHROOM HE STATES "I'M GOING TO . I'M GOING TO SHIT MY PANTS". PT ASSISTED TO ROOM AND VITALS ASSSESSED AND ARE FOLLOWS: 97.3-96-18-113/63-98% ROOM AIR AND BSG 100. NO ACUTE DISTRESS NOTED. PT ANGRY/IRRITABLE. PT STATES "I DON'T CARE WHAT THAT DAMN THING SAYS. TAKE ME TO THE EMERGENCY ROOM BEFORE I'M ". CALL PLACED TO AND MADE AWARE OF ALL OF THE ABOVE. STATES OK TO GIVE PRN ATIVAN, IF INEFFECTIVE, CALL BACK AND WILL COME AND SEE PT.
--- NOTE | 2019-04-26 13:36 | NUR ---
PRN ATIVAN 1MG PO GIVEN AT THIS TIME. PT CONTINUES TO C/O NOT FEELING WELL AND STATES "I'M JUST SO JUMPY. I CAN'T RELAX". ASSURED PT THIS MEDICATION SHOULD HELP TO CALM ANXIETY. PT STATES "I HOPE SO". A FEW MOMENTS AFTER SWALLOWING MEDICATION PT STATES "THIS ISN'T WORKING MA'AM. YOU GOTTA DO SOMETHING THAT WILL HELP ME". EDUCATION PROVIDED BY THIS NURSE AND 2ND RN THAT MEDICATION WILL TAKE SOME TIME TO TAKE EFFECT. PT ASSISTED TO POSITION OF COMFORT IN BED, GINGERALE PROVIDED AT BEDSIDE. BED ALARM ACTIVATED. Q15 MIN MONITORING CONTINUES.
--- NOTE | 2019-04-26 14:05 | NUR ---
PT OUT OF BED WITH STAFF ASSIST X1, SELF-PROPELLED TO NURSE'S STATION, REQUESTED COFFEE. PT ENCOURAGED TO ATTEND GROUP, DECAF COFFEE PROVIDED PER PT REQUEST. Q15 MIN MONITORING CONTINUES.
--- NOTE | 2019-04-26 15:10 | NUR ---
PT RETURNED TO ROOM AT THIS TIME WITH STAFF ASSIST. PT APPEARS LESS ANXIOUS AND AGITATED AT THIS TIME, ATE SNACK DURING GROUP. RESTING QUIETLY IN BED AT THIS TIME. NO FURTHER COMPLAINTS VOICED AT THIS TIME. BED ALARM ACTIVE AND AUDIBLE. Q15 MIN MONITORING CONTINUES PER POLICY.
--- NOTE | 2019-04-26 15:25 | NUR ---
P- LABILE MOOD, ANGRY/IRRITABLE, BECOMES EASILY AGITATED, PREOCCUPIED WITH MEDICATIONS AND "FEELING BAD", UNABLE TO PROVIDE SPECIFIC COMPLAINTS OTHER THAN INTERMITTENT NAUSEA. DEMANDING AND ARGUEMENTATIVE. I- ORIENTATION, MOOD AND BEHAVIOR ASSESSED. ASSESSED PT FOR SI/HI, INTENT OR PLAN. ASSESSED PT FOR S/S HALLUCINATIONS, PARANOIA AND/OR DELUSIONS. MEDICATIONS ADMINISTERED PER PHYSICIAN'S ORDERS. ASSISTANCE WITH ADL CARE PROVIDED NEEDED. ENCOURAGED PT TO ATTEND AND PARTICIPATE IN [facility] GROUPS AND ACTIVITIES. R- PT IS ALERT AND ORIENTED TO PERSON, APPROXIMATE PLACE, STATES HE IS IN THE HOSPITAL, WHEN ASKED WHICH ONE PT STATES "DENISSE BOYCENE". REORIENTATION PROVIDED. PT STATES "OH, YEAH". PT COMPLAINS OF FEELING "BAD" AND "ALWAYS DEPRESSED". PT ENDORSES FEELING HOPELESS. DENIES SUICIDAL OR HOMICIDAL IDEATIONS. DENIES HALLUCINATIONS, NO RESPONSE TO INTERNAL STIMULI NOTED. NO PARNAOIA OR DELUSIONS NOTED. PT CONTINUES TO BE PREOCCUPIED WITH MEDICATIONS, SPECIFICALLY TYLENOL. MOOD IS LABILE, PT RANGES QUICKLY FROM DEPRESSED/HOPELESS AND HELPLESS TO ANGRY/IRRITABLE, AGITATED AND DEMANDING. PT ARGUEMENTATIVE WITH STAFF. REFUSING TO COMPLETE ANY TASKS FOR HIMSELF. NO DISTRESS NOTED. P- PLAN TO CONTINUE CURRENT TREATMENT, CONTINUE TO MONITOR MOOD AND BEHAVIORS, PROVIDE APPROPRIATE REORIENTATION, REDIRECTION AND 1:1 NEEDED. CONTINUE TO ENCOURAGE MEDICATION COMPLIANCE, WELL GROUP ATTENDANCE AND PARTICIPATION.
--- NOTE | 2019-04-26 16:02 | NUR ---
PM GROUP/ART/MOVIE PT ATTENDED AND PARTICIPATED THROUGH OBSERVATION. PT STAYED FOR MAJORITY OF GROUP AND CHOSE TO GO LAY BACK DOWN IN ROOM. PT WILL CONTINUE TO BE ENOCURAGED TO ATTEND AN DPARTICIPATE IN FUTURE GROUP SESSIONS.
--- NOTE | 2019-04-26 16:56 | NUR ---
PT REPORTS FEELING "A LITTLE BETTER" FOLLOWING ADMINISTRATION OF PRN ATIVAN THIS AFTERNOON. PT REPORTS A DECREASE IN ANXIETY, PT NO LONGER DEMANDING TO GO TO EMERGENCY ROOM OR YELLING/CURSING AT STAFF. PT APPEARS MORE CALM AND IN CONTROL OF BEHAVIOR. NO DISTRESS. Q15 MIN MONITORING CONTINUES. ENCOURAGED PT TO COME TO DINING ROOM FOR DINNER.
--- NOTE | 2019-04-26 18:00 | NUR ---
PT CAME DOWN TO DINING ROOM AND ATE 50% OF DINNER, 180CC FLUID INTAKE. STATES HE IS FEELING BETTER NOW.
--- NOTE | 2019-04-26 18:34 | NUR ---
SHIFT CHART CHECK COMPLETED.
--- NOTE | 2019-04-26 18:35 | NUR ---
PT DOWN TO DINING ROOM AT THIS TIME FOR COFFEE. PT CONTINUES TO BE DEMANDING OF STAFF AND ARGUEMENTATIVE WITH USE OF SARCASTIC TONE.
[2019-04-26 20:00] VITALS: BP 101/60
--- NOTE | 2019-04-27 05:36 | NUR ---
PT ALERT TO SELF WITH CONFUSION NOTED. PT UP AND DOWN IN BED. ATTEMPTING TO STAND UP FROM W/C WITH BRAKES NOT LOCKED. PT PLACED IN ADRIANNA CHAIR FOR SAFETY. PT VERBALLY AGGRESSIVE WITH STAFF. Q15 MINUTE SAFETY CHECKS MAINTAINED. SEE [facility] FLOWSHEET FOR SPECIFIC MONITORING. MEDICATION COMPLIANT WITHOUT DIFFICULTY.
--- NOTE | 2019-04-27 05:56 | NUR ---
PT SLEPT APPROXIMATELY 3 HOURS THIS SHIFT. Q15 MINUTE SAFETY CHECKS MAINTAINED.
--- NOTE | 2019-04-27 07:49 | NUR ---
DURING THE NIGHT PT ASKED FOR A NURSE. THIS NURSE WENT TO CHECK ON PT AND PT ASKED IF THIS NURSE COULD GET RID OF THE MONSTER IN THE ROOM. PT WOULD NOT DESCRIBE THE MONSTER OR WHAT HE WAS THINKING. PT BECAME GUARDED AND STOPPED TALKING TO THIS NURSE. 1:1 PROVIDED AND INEFFECTIVE.
[2019-04-27 08:00] VITALS: BP 100/63
--- NOTE | 2019-04-27 14:42 | NUR ---
P: ISOLATIVE TO ROOM, POOR SELF CARE AND TURNS WITH REPOSTIONING Q 2 HRS I: ONE ON ONE, REDIRECTION AND CUEING PROVIDED FOR SELF CARE, ENCOURAGED TO COME TO DINING ROOM FOR MEALS AND TO BE SOCIAL WITH OTHER PATIENTS. R: EFFECTIVE. PATIENT IS ALERT TO PERSON AND AWARE HE IS IN THE HOSPITAL WITH CONFUSION; MEMORY DEFICITS NOTED. MOOD IS IRRITABLE AT TIMES. DENIES ANY HALLUCINATIONS, DELUSIONS, HI/SI OR PAIN. PATIENT SPOKE WITH BROTHER "ED" AND WANTS HIM TO COME GET HIM. PATIENT IS PREOCCUPIED WITH WANTING DISCHARGED. PATIENT RESTING IN BED THIS MORNING, OBSERVED BILATERAL ELBOWS. PINK AND BLANCHABLE. OBSERVED COCCYX-PINK AND BLANCHABLE. TALKED TO PATIENT REGARDING REPOSITIONS AND ENCOURGED PATIENT TO CHANGE POSITIONS Q 2 HRS FOR SKIN PREVENTION; TO PREVENT PRESSURE SORE. AT FIRST PATIENT BECAME AGITATED. SPACE PROVIDED AND EFFECTIVE. CALMOSEPTINE ORDERED AND APPLIED TO COCCYX. PATIENT IS MEDICATION COMPLAINT. Q 15 MINUTE SAFETY CHECKS MAINTAINED. 1 PERSON ASSIST WITH VERBAL CUEING AND HANDS ON ASSIST NEEDED WITH ACTIVITIES OF DAILY LIVING. INCONTIENT OF BLADDER, CONTINENT OF BOWELS. SET UP FOR MEALS, ENCOURAGING MEAL/DRINK INTAKES. SNACKS PROVIDED WITH ASKED DURING THE DAY. SELF PROPELS IN WHEELCHAIR. P:CONTINUE TO MONITOR FOR REFUSALS WITH HANDS ON CARE, PARANOIA, SELF CARE AND MEDICATION COMPLAINCE; CONINUE TO PROVIDE ONE ON ONE AND REDIRECTIONS NEEDED.
--- NOTE | 2019-04-27 18:15 | NUR ---
PATIENT COMPLAINED OF PAIN ALL OVER, RATING 7/10 PAIN. PRN TYENOL 650MG PO GIVEN AT THIS TIME.
[2019-04-27 20:00] VITALS: BP 118/74
--- NOTE | 2019-04-27 21:20 | NUR ---
24 HR chart check completed.
--- NOTE | 2019-04-27 23:47 | NUR ---
P-DEPRESSED, HOPELESS, HELPLESS I-PROVIDE VERBAL INTERVENTION FOR EMOTIONAL SUPPORT, ENCOURAGE PARTICIPATION IN UNIT ACTIVITIES & ENCOURAGE SOCIALIZATION. ADMINISTER MEDICATIONS, MONITOR SLEEP R-DEPRESSED & ISOLATIVE KEEPING TO HIMSELF. SITTING IN A WHEELCHAIR IN THE HALLWAY & MOVES HIMSELF INDEPENDENTLY. WAS INTRUSIVE & DEMANDING AT THE BEGINNING OF THE SHIFT & SAT AT THE NURSES STATION DEMANDING MORE TYLENOL DESPITE BEING TOLD HE JUST HAD IT. CONTINUES TO HAVE LIMITED VERBAL INTERACTIONS WITH STAFF & PEERS. WHEN ASKED HOW HE WAS FEELING, HE STATED, "A LITTLE BETTER". ALERT TO PERSON, STATES HE IS IN "[place]", THE YEAR IS "2000 OR SOMETHING. I DONT KNOW. REALLY DONT CARE EITHER." & BOSSMAN IS THE PRESIDENT. CONTINUES TO USE THE CALL DEL CASTILLO FREQUENTLY FOR SIMPLE REQUESTS. COMPLIANT WITH HS MEDICATIONS. ATE SNACK. P-CONTINUE TO MONITOR & PROVIDE PHYSICAL ASSISTANCE & EMOTIONAL SUPPORT NEEDED.
--- NOTE | 2019-04-28 00:49 | NUR ---
REQUESTED & MEDICATED WITH THLENOL 2 TABS PO FOR C/O H/A. RATED PAIN 7/10.
--- NOTE | 2019-04-28 03:25 | NUR ---
PT SLEPT FROM [id number]. TYLENOL HAS BEEN EFFECTIVE & PT RETURNED TO SLEEP @ 0130.
[2019-04-28 07:55] VITALS: BP 119/70
--- NOTE | 2019-04-28 10:04 | NUR ---
Treatment team meeting held with Dr yMrick RN, FIREBRICK LAYER HELPER-S, and Tap Builder. Tentative discharge is this Sunday returning to [facility].
--- NOTE | 2019-04-28 11:57 | NUR ---
AM GROUP/SOCIALIZATION PT ATTENDED GROUP AND SAT AT A TABLE WITH PEERS. PT LISTENED ONLY BUT DID NOT SPEAK. PT WILL BE ENCOURAGED TO PARTICIPATE IN FUTURE GROUPS. PT EXHIBITED NO AGGRESSIVE BEHAVIORS DURING GROUP.
--- NOTE | 2019-04-28 15:09 | NUR ---
Faxed pt update to Erika at [facility].
--- NOTE | 2019-04-28 15:48 | NUR ---
P: PT CALM, MOOD IS HOPELESS/HELPLESS. PT PRE-OCCUPIED WITH MEDS, ASKING MULTIPLE TIMES FOR TYLENOL. PT ALERT TO PERSON ONLY, THINKING THE YEAR IS 2016 AND HE'S IN [place], SHORT TERM MEMORY DEFICITS NOTED. I: PT MED COMPLIANT WITHOUT DIFFICULTY, MED EDUCATION PROVIDED. PT ENCOURAGED TO PARTICIPATE IN GROUPS/ACTIVITIES. R: PT CONTINUES TO BE FIXATED ON TYLENOL AND OTHER MEDICATIONS. PT REPEATEDLY ASKING EVEN AFTER GIVEN TYLNOL. P: CONTINUE TO ENCOURAGE MED COMPLIANCE AND PROVIDE MED EDUCATION, PROVIDE EMOTIONAL SUPPORT AND 1:1 FOR PT TO VOICE FEELINGS, MONITOR PT BEHAVIORS ON Q15 MIN SAFETY CEHCKS. PT UP TO WHEELCAHIR, D/T INABILITY TO ABMULATE UNSTEADY GAIT AND LACK OF SAFETY AWARENESS. PT CONTINENT OF BOWEL AND BLADDER.
--- NOTE | 2019-04-28 16:01 | NUR ---
PM GROUP/LEISURE INTERESTS PT ATTENDED GROUP BUT CHOSE NOT TO PARTICIPATED. PT WAS PREOCCUPIED WITH MEDICATIONS AND WHEN THEY WERE DUE.
[2019-04-28 20:00] VITALS: BP 109/68
--- NOTE | 2019-04-29 01:43 | NUR ---
P: LABILE MOOD I: 1:1 PROVIDED TO ALLOW TIME FOR PT TO VENT. ENCOURAGED MEDICATION COMPLIANCE. OFFERED SNACK/DRINK. OFFERED NONPHARMACOLOGICAL WAYS FOR PT TO REDUCE ANXIETY/STRESS (COLORING, TOILETING, TV, TALKING TO STAFF). ENCOURAGED PT TO ATTEMPT TO COMPLETE TASKS BY HIMSELF PRIOR TO ASKING FOR HELP. R: MEDICATION COMPLIANT. PT BECAME GUARDED AND WOULD NOT OPEN UP ABOUT WHY HE IS FEELING AGITATED. REFUSED ALL NONPHARMACOLOGICAL INTERVENTIONS. PT HOPELESS/HELPLESS. PT STATING HE CAN NOT DO THINGS SUCH SITTING UP, TRANSFERRING SELF, WHEELING HIMSELF THROUGH HALLWAY. P: CONTINUE TO ENCOURAGE INDEPENDENCE AND MEDICATION COMPLIANCE. CONTINUE TO OFFER 1:1 TO ALLOW TIME FOR PT TO VENT FEELINGS. CONTINUE TO OFFER NONPHARMACOLOGICAL INTERVENTIONS. CONTINUE TO MONITOR BEHAVIORS WITH Q15 MINUTE SAFETY CHECKS.
--- NOTE | 2019-04-29 02:52 | NUR ---
PT CAME TO NURSES STATION YELLING AND CURSING. WHEN ASKED PT WHAT WAS WRONG HE STATED HE DIDNT FEEL GOOD. PT WILL NOT ELABORATE ON SYMPTOMS AND PT STATES YOUR THE NURSE. WHEN PT WAS ASKED IF HE WAS IN PAIN, IF HE WAS NAUSEOUS, HAVE A HEADACHE PT STATED "YES i DONT FUCKING FEEL GOOD" PT CURSING AT STAFF AND BECOMING VERBALLY AGGRESSIVE. UNABLE TO REDIRECT PT AT THIS TIME. PRN ATIVAN, TYLENOL, AND ZOFRAN GIVEN. WILL MONITOR EFFECTIVENESS OF MEDICATION. PT STATED "THE NURSE NEEDS TO TAKE ME TO THE EMERGENCY ROOM SHE IS NOT DOING HER JOB" PT WAS TOILETED AND PT STATED "YOU NEED TO HELP ME I CAN NOT HOLD IT IN THE URINAL.
--- NOTE | 2019-04-29 03:06 | NUR ---
PT ATTEMPTING TO SWING AND KICK STAFF MEMBERS. PLACED IN ADRIANNA CHAIR AND IN VIEW OF NURSES STATION.
--- NOTE | 2019-04-29 05:59 | NUR ---
PT SLEPT APPROXIMATELY 5 HOURS THIS SHIFT. Q15 MINUTE SAFETY CHECKS MAINTAINED.
[2019-04-29 07:37] VITALS: BP 128/69
--- NOTE | 2019-04-29 08:30 | NUR ---
BILL FROM PHARMACY CALLED TO ASK ABOUT PLACEBO MEDICATION FOR PATIENT RECEIVING TYLENOL PER DR PHAM. BILL FROM PHARMACY TO CHECK INTO INTO PLACEBO MEDICATION AND ETHICAL CONCERNS REGARDING PLACEBO MEDICATION
--- NOTE | 2019-04-29 10:33 | NUR ---
Treatment team meeting held with Dr Myrick, RN, CLINICAL MICROBIOLOGIST-S, and Equipment Washer. Tentative plan is for pt to discharge on 05/02/19 returning to [facility].
--- NOTE | 2019-04-29 10:57 | NUR ---
IP 2 additional days kath per Dipti at [facility], NRD 05/02. Ref # [id number]
--- NOTE | 2019-04-29 11:25 | NUR ---
DR GARCIA ON UNIT TO SEE PATIENT
--- NOTE | 2019-04-29 11:30 | NUR ---
P-DEPRESSED MOOD. PREOCCUPIED. PATIENT ALERT WITH PERIODS OF CONFUSION. PATIENT WITH NO HALLUCINATIONS OR DELUSIONS. PATIENT WITH NO SUICIDAL OR HOMICIDAL IDEATIONS. PATIENT PREOCCUPIED WITH TYLENOL. PATIENT STATING HAVING PAIN ALL OVER. PATIENT UNABLE TO DESCRIBE PAIN OR GIVE A SPECIFIC LOCATION I-REDIRECTION WITH 1:1 THERAPEUTIC INTERVENTIONS AND PRESENT REALITY. EDUCATE AND ENCOURAGE MEDICATION COMPLIANCE R-PATIENT MEDICATION COMPLIANT AT THIS TIME. PATIENT MEDICATED WITH TYLENOL 650MG WITH EFFECTIVE RESULTS. PATIENT SNACKING INTERMITTENTLY THROUGHOUT SHIFT. PATIENT WITH REMINDERS AT TIMES DURING SHIFT ABOUT MEDICATIONS AND TIMES MEDICATIONS GIVEN. PATIENT WITH MINIMUM ASSISTANCE FROM TRANSFERRING FROM BED TO WHEELCHAIR. P-CONTINUE TO ENCOURAGE MEDICATION COMPLIANCE, CONTINUE TO PRESENT REALITY, ENCOURAGE GROUP THERAPY WHILE AWAKE
--- NOTE | 2019-04-29 11:38 | NUR ---
AM GROUP/COPING SKILLS PT WAS PRESENT FOR GROUP BUT REFUSED TO PARTICIPATE. PT IS FOCUSED ON MEDICATION AND WHEN HE WILL RECEIVE IT AND CONTINUALLY ASKED, "CAM YOU GET ME MY MEDICATION?" PT WAS REMINDED EACH TIME THAT I AM NOT A NURSE AND THAT I CANNOT HELP HIM WITH MEDICATIONS.
--- NOTE | 2019-04-29 16:09 | NUR ---
Shift chart check completed.
[2019-04-29 20:16] VITALS: BP 120/68
--- NOTE | 2019-04-29 20:30 | NUR ---
EVENING/STORY/MUSIC/REMININSCE PT CHOSE NOT TO ATTEND OR PARTICIPATE BUT TO REMAIN IN HIS ROOM. PT WILL CONTINUE TO BE ENCOURAGED TO ATTEND AN DPARTICIPATE IN FUTURE GROUP SESSIONS.
--- NOTE | 2019-04-29 21:36 | NUR ---
Patient alert and oriented. Patient isolative to room and refused HS snacks. Denies SI/HI at this time. No hallucinations/delusions noted at this time. Patient was in hallway in wheelchair but then went back into room. Patient compliant with medications without any difficulty. Provided 1:1 for expression of feelings. Plan to continue to encourage medication compliance and to continue to provide 1:1 for emotional support. Q 15 minute safety checks continued and maintained. See [facility] flowsheet for further documentation.
--- NOTE | 2019-04-30 00:11 | NUR ---
24 HR chart check completed.
--- NOTE | 2019-04-30 05:16 | NUR ---
Patient slept approx. 4 hours with 1 interruption. Q 15 minute safety checks continued and maintained.
--- NOTE | 2019-04-30 07:56 | NUR ---
PT AWAKE, ALERT, SITTING IN WHEELCHAIR IN DINING ROOM EATING BREAKFAST AT TABLE WITH PEERS. RESPS EASY AND EVEN ON ROOM AIR. NO DISTRESS NOTED.
[2019-04-30 07:58] VITALS: BP 115/65
--- NOTE | 2019-04-30 08:28 | NUR ---
ON UNIT TO SEE PT AT THIS TIME, UPDATE GIVEN.
--- NOTE | 2019-04-30 09:45 | NUR ---
PRN TYLENOL 650MG PO GIVEN AT THIS TIME PER PT REQUEST FOR C/O GENERALIZED PAIN ALL OVER, NOT RATED ON PAIN SCALE, UNRELIEVED BY REPOSITIONING/NONPHARMALOGICAL INTERVENTIONS. WILL MONITOR FOR EFFECTIVENESS OF MEDICATION.
--- NOTE | 2019-04-30 10:32 | NUR ---
Treatment team meeting held with Dr Myrick, RN, ACQUISITION MARKETING MANAGER-S, and Supervisor Elementary Education. Tentative discharge is scheduled for 05/02/19 with pt returning [facility].
--- NOTE | 2019-04-30 11:00 | NUR ---
CALL PLACED TO [facility], SPOKE TO LITTLE, REQUESTED RECORDS OF PT WEIGHTS FROM FACILITY FOR COMPARISION TO CURRENT WEIGHT (135.0) PER THE REQUEST OF . FAX NUMBER PROVIDED. LITTLE STATED SHE WOULD SEND THEM VIA FAX.
--- NOTE | 2019-04-30 11:00 | NUR ---
PT HAS VOICED NO FURTHER C/O PAIN AND HAS MADE NO FURTHER REQUESTS FOR PRN TYLENOL OF THIS TIME. TYLENOL EFFECTIVE.
--- NOTE | 2019-04-30 11:49 | NUR ---
ON UNIT TO SEE PT AT THIS TIME.
--- NOTE | 2019-04-30 11:49 | NUR ---
AM GROUP/INTERPERSONAL INTERACTIONS PT WAS PRESENT FOR GROUP AND ONLY ASKED ABOUT HIS MEDICATION ONCE. PT ASKED FOR AND ATE A SNACK. PT DOES NOT ENGAGE IN CONVERSATION BUT WILL ANSWER IF ASKED A QUESTION. PT EXHBITED NO AGGRESSIVE BEHAVIORS DURING GROUP AND WAS LESS DEMANDING THAN PREVIOUSLY
--- NOTE | 2019-04-30 13:10 | NUR ---
P- DEPRESSED MOOD, FLAT AFFECT, ISOLATIVE AT TIMES, PREOCCUPIED AT TIMES WITH PRN TYLENOL ADMINISTRATION. PERIODS OF CONFUSION AND ST MEMORY GAPS NOTED. I- ORIENTATION, MOOD AND BEHAVIOR ASSESSED. ASSESSED PT FOR SI/HI, INTENT OR PLAN. ASSESSED PT FOR SI/HI, INTENT OR PLAN. ASSESSED PT FOR S/S HALLUCINATIONS, PARANOIA AND/OR DELUSIONS. MEDICATIONS ADMINISTERED PER PHYSICIAN'S ORDERS. ASSISTANCE WITH ADL CARE PROVIDED NEEDED. ENCOURAGEMENT PROVIDED FOR PT TO COMPLETE TASKS WITH MUCH INDEPENDENCE IS SAFE AND POSSIBLE FOR PT. ENCOURAGED PT TO ATTEND AND PARTICIPATE IN [facility] GROUPS AND ACTIVITIES. R- PT IS ALERT AND ORIENTED TO PERSON, APPROXIMATE PLACE AND TIME, PT STATES HE IS IN "A HOSPITAL" BUT UNABLE TO STATE WHICH ONE. ST MEMORY GAPS NOTED. RESPS EASY AND EVEN ON ROOM AIR. MOOD REMAINS DEPRESSED WITH FLAT AFFECT. APPETITE IS NOTED TO BE IMPROVED. SPEECH IS SOFT, COHERENT, ABLE TO MAKE NEEDS KNOWN WITHOUT DIFFICULTY. PT DENIES SI/HI, INTENT OR PLAN. PT DENIES HALLUCINATIONS, NO RESPONSE TO INTERNAL STIMULI NOTED. MEDICATION COMPLIANT WITHOUT DIFFICULTY, AM BLOOD PRESSURE MEDICATIONS HELD D/T MANUAL BP 98/58, AWARE. NO DISTRESS NOTED. NO AGGRESSIVE BEHAVIORS, PT LESS DEMANDING THAN PREVIOUS ASSESSMENTS. P- PLAN TO CONTINUE CURRENT TREATMENT; CONTINUE TO MONITOR MOOD AND BEHAVIORS, PROVIDE APPROPRIATE REORIENTATION, REDIRECTION AND 1:1 NEEDED. CONTINUE TO ENCOURAGE MEDICATION COMPLIANCE WELL GROUP ATTENDANCE AND PARTICIPATION.
--- NOTE | 2019-04-30 14:04 | NUR ---
Faxed patient update to [facility].
--- NOTE | 2019-04-30 15:45 | NUR ---
PM GROUP/LEISURE INTERESTS PT CHOSE NOT TO ATTEND AFTERNOON GROUP THERAPY. PT STAYED IN BED NAPPING.
--- NOTE | 2019-04-30 18:05 | NUR ---
SHIFT CHART CHECK COMPLETED.
[2019-04-30 20:00] VITALS: BP 110/60
--- NOTE | 2019-04-30 21:37 | NUR ---
P: ISOLATIVE/WITHDRAWN I: ENCOURAGED PT TO COME TO DINNINGROOM FOR SNACK/DRINK AT HS. ENCOURAGED MEDICATION COMPLIANCE. ENCOURAGED INCREASED SOCIALIZATION WITH PEERS AND STAFF. 1:1 PROVIDED TO ALLOW FOR THERAPEUTIC COMMUNICATION. MONITOR BEHAVIOR WITH Q15 MINUTE SAFETY CHECKS. R: PT REFUSED TO COME OUT OF HIS ROOM FOR HS SNACK. REFUSED TO INTERACT WITH PEERS AND LIMITED INTERACTIONS WITH STAFF. MEDICATION COMPLIANT WITHOUT DIFFICULTY. P: CONTINUE TO ENCOURAGE INCREASED SOCIALIZATION WITH PEERS/STAFF, MEDICATION COMPLIANCE, AND SPENDING MORE TIME OUT OF HIS ROOM. MONITOR BEHAVIOR WITH Q15 MINUTE SAFETY CHECKS. HELD NIGHTTIME METROPOLOL D/T LOW BP. SEE [facility] FLOWSHEET FOR SPECIFIC MONITORING.
--- NOTE | 2019-04-30 23:35 | NUR ---
24 HR chart check completed.
--- NOTE | 2019-05-01 05:50 | NUR ---
PT SLEPT APPROXIMATELY 4 HOURS THIS SHIFT. Q15 MINUTE SAFETY CHECKS MAINTAINED.
--- NOTE | 2019-05-01 06:32 | NUR ---
PT REFUSED MEDICATIONS THIS AM X MULTIPLE ATTEMPTS.
--- NOTE | 2019-05-01 06:41 | NUR ---
PT REQUESTED MEDICINE AT THIS TIME. AM MEDICATION GIVEN
--- NOTE | 2019-05-01 07:27 | NUR ---
PT RESTING QUIETLY IN BED WITH EYES CLOSED, RESPS EASY AND EVEN ON ROOM AIR. AWAITING BREAKFAST AT THIS TIME.
[2019-05-01 07:33] VITALS: BP 130/73
--- NOTE | 2019-05-01 08:45 | NUR ---
ON UNIT TO SEE PT AT THIS TIME, UPDATE GIVEN.
--- NOTE | 2019-05-01 09:38 | NUR ---
PRN TYLENOL 650MG PO GIVEN AT THIS TIME PER PT REQUEST FOR C/O GENERALIZED PAIN ALL OVER NOT RATED ON PAIN SCALE. WILL MONITOR FOR EFFECTIVENESS.
--- NOTE | 2019-05-01 11:00 | NUR ---
NO FURTHER C/O PAIN VOICED AT THIS TIME. TYLENOL EFFECTIVE.
--- NOTE | 2019-05-01 11:31 | NUR ---
Treatment team meeting held with Dr Myrick, RN, OIL PLANT OPERATOR-S, and [employer] Torque Tester. Plan is for patient to discharge tomorrow to [facility].
--- NOTE | 2019-05-01 11:32 | NUR ---
Spoke with Erika at [facility] and left a voicemail message for pt's daughter Lowell Pinto notifying them of pt's discharge scheduled for tomorrow.
--- NOTE | 2019-05-01 11:45 | NUR ---
AND STUDENT ON UNIT AT THIS TIME.
--- NOTE | 2019-05-01 11:47 | NUR ---
AM GROUP/EXERCISE AND BALL TOSS PT WAS IN HIS ROOM RESTING WHEN GROUP BEGAN AND COULD NOT BE ENCOURAGED TO ATTEND GROUP
--- NOTE | 2019-05-01 12:52 | NUR ---
P- DEPRESSED MOOD, ISOLATIVE TO ROOM, DECLINES TO PARTICIPATE IN GROUPS, STATES HE FEELS "SAD LIKE ALWAYS". BLUNTED AFFECT. DENIES SI/HI, INTENT OR PLAN. MEDICATION COMPLIANT WITHOUT DIFFICULTY. NO AGGRESSIVE BEHAVIORS. I- ORIENTATION, MODO AND BEHAVIOR ASSESSED. ASSESSED PT FOR SI/HI, INTENT OR PLAN. PT DENIES HALLUCINATIONS, NO RESPONSE TO INTERNAL STIMULI NOTED. MEDICATIONS ADMINISTERED PER PHYSICIAN'S ORDERS. ASSISTANCE WITH ADL CARE PROVIDED, ENCOURAGEMENT PROVIDED FOR PT TO COMPLETE TASKS WITH MUCH INDEPENDENCE IS SAFE AND POSSIBLE FOR PT. ENCOURAGED PT TO ATTEND AND PARTICIPATE IN [facility] GROUPS AND ACTIVITIES. R- PT IS ALERT AND ORIENTED TO PERSON, APPROXIMATE PLACE. ST MEMORY GAPS NOTED. RESPS EASY AND EVEN ON ROOM AIR. MOOD CONTINUES TO APPEAR DEPRESSED BUT STABLE. PT STATES HE IS ALWAYS FEELS "SAD". PT DENIES SI/HI, INTENT OR PLAN. PT DENIES HALLUCINATIONS, NO RESPONSE TO INTERNAL STIMULI NOTED. NO PARANOIA OR DELUSIONS NOTED. PT IS MEDICATION COMPLIANT WITHOUT DIFFICULTY. PT REMAINS ISOLATIVE TO ROOM, COMES OUT FOR MEALS, DECLINED TO ATTEND GROUP THIS DATE DESPITE ENCOURAGEMENT FROM STAFF. NO AGGRESSIVE BEHAVIORS. NO DISTRESS NOTED. P- PLAN TO CONTINUE CURRENT TREATMENT, CONTINUE TO MONITOR MOOD AND BEHAVIORS, PROVIDE APPROPRIATE REORIENTATION, REDIRECTION AND 1:1 NEEDED. CONTINUE TO ENCOURAGE MEDICATION COMPLIANCE WELL GROUP ATTENDANCE AND PARTICIPATION.
--- NOTE | 2019-05-01 15:41 | NUR ---
PM GROUP/COLOR THERAPY PT WAS IN AND OUT OF GROUP AND DID NOT PARTICIPATE BUT ONLY ASKED FOR COFFEE AND A SNACK ONLY TO LEAVE THEM ON THE TABLE UNTOUCHED. PT RETURNED AND WANTED MORE COFFEE AND WANTED TO KNOW WHEN HE COULD HAVE HIS TYLENOL. PT IS DEMANDING BUT EXHIBITED NO AGGRESSIVE BEHAVIORS.
--- NOTE | 2019-05-01 16:46 | NUR ---
PRN TYLENOL 650MG PO GIVEN AT THIS TIME PER PT REQUEST FOR C/O GENERALIZED PAIN ALL OVER NOT RATED ON PAIN SCALE. WILL MONITOR FOR EFFECTIVENESS OF MEDICATION.
--- NOTE | 2019-05-01 18:14 | NUR ---
TYLENOL EFFECTIVE. PT VOICES NO FURTHER C/O PAIN AT THIS TIME.
--- NOTE | 2019-05-01 18:15 | NUR ---
SHIFT CHART CHECK COMPLETED.
[2019-05-01 20:00] VITALS: BP 117/69
--- NOTE | 2019-05-01 21:26 | NUR ---
TYLENOL GIVEN WITH NIGHTTIME MEDICATIONS AT CLIENTS REQUEST. STATES HE IS IN CHRONIC 10/10 PAIN. WILL MONITOR
--- NOTE | 2019-05-02 05:53 | NUR ---
24 HR chart check completed.
--- NOTE | 2019-05-02 06:24 | NUR ---
TYLENOL GIVEN AT CLIENT REQUEST FOR CHRONIC PAIN SLEPT FAIR AFTER 2300PM
--- NOTE | 2019-05-02 07:34 | NUR ---
DR. DUVALL NOTIFIED OF PATIENT BEING DISCHARGED; TO NOTIFY DR. GARCIA TO BE INFORMED.
[2019-05-02 07:44] VITALS: BP 116/71
--- NOTE | 2019-05-02 08:21 | NUR ---
Treatment team meeting held with Dr Myrick, RN, TAPE RECORDER REPAIRER-S, and Plant Etiologist. Pt is discharging today to [facility].
[2019-05-02] MEDS ORDERED: RISPERIDONE M-TA1 MG BC (09:06)
[2019-05-02] MEDS ORDERED: MIRTAZAPINE15 M2 PO (09:06)
[2019-05-02] MEDS ORDERED: MEMANTINE HCL10 MG PO (09:06)
[2019-05-02] MEDS ORDERED: VITAMIN D5000 UNI1 PO (09:06)
[2019-05-02] MEDS ORDERED: EXELON13.3 MG/21 T (09:06)
[2019-05-02] MEDS ORDERED: ROZEREM8 MG PO (09:06)
--- NOTE | 2019-05-02 11:04 | NUR ---
PATIENT SHOWERED, HAS RED RASH TO GRION AREA, CALMSEPTINE CREAM APPLIED FOR SKIN PROTECTION.
--- NOTE | 2019-05-02 11:15 | NUR ---
DR. GARCIA ON UNIT TO ASSESS PATINET.
--- NOTE | 2019-05-02 11:34 | NUR ---
AM GROUP/MUSIC AND MANICURES PT DID NOT ATTEND MORNING GROUP THERAPY.PT IS READYING TO BE DISCHARGED FROM THE UNIT THIS AFTERNOON
--- NOTE | 2019-05-02 12:17 | NUR ---
P: DEPRESSED MOOD, REFUSING TO CARE FOR SELF-ACTIVITIES OF DAILY LIVING, PERSONAL HYGIENE. I: ONE ON ONE AND REDIRECTION PROVIDED, ENCOURAGE PATIENT TO ATTEND GROUP SESSION. R: PATIENT SHOWER WITH ASSIST OF 2; ONE ON ONE AND REDIRECTION EFFECTIVE. PATIENT IS ALERT TO PERSON AND SITUATION WITH CONFUSION; ABLE T VOICE NEEDS. MOOD IS DEPRESSED. DENIES ANY HALLUCINATIONS, DELUSIONS, HI/SI OR PAIN. MEDICAITON COMPLAINT. Q 15 MINUTE SAFETY CHECKS MAINTAINED. 1 PERSON ASSSIT WITH ACTIVITIES OF DAILY LIVING, MIXED INCONTINENCE OF BOWEL AND BLADDER. SET UP FOR MEALS, INTAKE ARE POOR WITH SOME IMPROVEMENT. CONTINUE TO ENCOURAGE INTAKES. SELF PROPELS ON UNIT. P: CONTINUE TO MONITOR MOOD, PARANOIA AND SELF CARE; PROVIDE ONE ON ONE AND REDIRECTION NEEDED.
--- NOTE | 2019-05-02 13:05 | NUR ---
NURSE TO NURSE REPORT GIVEN TO AIME AT [facility].
--- NOTE | 2019-05-02 13:48 | NUR ---
Pt is discharging today to [facility]. Follow-up will be with Dr Myrick, visiting psychiatrist. While at [facility], pt's mood improved. He allowed assistance with ADLs and showed an improved appetite. Pt was pleasant and cooperative with staff.
--- NOTE | 2019-05-02 15:24 | NUR ---
PT DISCHARGED TO [facility] VIA [facility]. ALL BELONGINGS AND DISCHARGE PAPERWORK SENT WITH PT.
--- NOTE | 2019-05-05 10:52 | NUR ---
Detailed discharge clincal left for Dipti at [facility] on her confidential voicemail at [phone]. Auth # [id number]
== END 2019-05-02 15:22 | DRG 57 ==
LOC: 3N 12:37
PROVIDERS: ADMIT Psychiatry & Neurology Psychiatry
DX: G30.9 Alzheimer's disease, unspecified (principal); F33.3 Major depressive disorder, recurrent, severe with psychotic symptoms; F02.81 Dementia in other diseases classified elsewhere, unspecified severity, with behavioral disturbance; R00.0 Tachycardia, unspecified; R11.0 Nausea; K21.9 Gastro-esophageal reflux disease without esophagitis; I25.10 Atherosclerotic heart disease of native coronary artery without angina pectoris; I10 Essential (primary) hypertension; E78.5 Hyperlipidemia, unspecified; D53.9 Nutritional anemia, unspecified; G89.29 Other chronic pain; M54.9 Dorsalgia, unspecified; Z91.19 Patient's noncompliance with other medical treatment and regimen; Z87.891 Personal history of nicotine dependence; Z79.899 Other long term (current) drug therapy